=== PATIENT | male | born 1965 | race Caucasian/White ===

== ENCOUNTER 2021-08-02 03:27 | Outpatient (RCR) | payer MEDICAID, SELFPAY ==
[2021-08-02] MEDS: Normal Saline Flush 10 ML SYR IVP (10:15)
[2021-08-02 10:37] LABS: Abs Immature Grans 0.09 10^3/uL (0.0-0.06); Absolute Basophil Count 0.02 10^3/uL (0.0-0.2); Absolute Eosinophil Count 0.08 10^3/uL (0.0-0.7); Absolute Lymphocyte Count 0.71 10^3/uL (1.2-3.4); Absolute Monocyte Count 0.79 10^3/uL (0.1-0.8); Absolute Neutrophil Count 5.26 10^3/uL (1.2-6.7); Basophils % 0.3; Eosinophils % 1.2; HCT 31.8 % (40.0-50.0); HGB 9.4 g/dL (13.5-17.5); Immature Grans % 1.3; Lymphocytes % 10.2; MCH 27.6 pg (27.0-33.0); MCHC 29.6 % (32.0-36.0); MCV 93.3 fL (80-95); MPV 9.4 fL (8.0-11.0); Monocytes % 11.4; Neutrophils % 75.6; Nucleated RBC 0 %; Platelet Count 376 10^3/uL (130-400); RBC 3.41 10^6/uL (4.36-5.78); RDW 23.8 % (11.8-14.1); RDW-SD 81.1 fL; WBC 6.95 10^3/uL (4.4-10.8)
[2021-08-02 11:02] LABS: ALT 17 U/L (16-63); AST 8 U/L (15-37); Albumin 3.2 g/dL (3.4-5.0); Alkaline Phosphatase 92 U/L (46-116); Anion Gap 9.5 mmol/L (3-11); BUN 11 mg/dL (7-18); Bilirubin, Total 0.2 mg/dL (0.2-1.0); CO2 27.5 mmol/L (21.0-32.0); CREATININE 0.7 mg/dL (0.70-1.30); Calcium 8.9 mg/dL (8.5-10.1); Chloride 100 mmol/L (98-107); FREE T4 0.83 ng/dL (0.76-1.46); Glucose 94 mg/dL (74-106); LDH 132 U/L (85-227); Potassium 3.8 mmol/L (3.5-5.1); Sodium 137 mmol/L (136-145); TSH 3.53 uIU/mL (0.36-3.74); Total Protein 7.4 g/dL (6.4-8.2)
[2021-08-02 11:09] LABS: Anisocytosis 2+; Diff Comment RBC Morph Reviewed; Hypochromasia 1+
== END 2021-08-27 23:59 | disposition home or self-care (01) ==
LOC: INF 03:27
PROVIDERS: PCP Family Medicine; Visit Provider Nurse Practitioner
DX: C34.92 Malignant neoplasm of unspecified part of left bronchus or lung (principal); Z79.899 Other long term (current) drug therapy; Z45.2 Encounter for adjustment and management of vascular access device
CPT/HCPCS: 36591; 80053; 83615; 84439; 84443; 85025

== ENCOUNTER 2021-09-10 12:43 | Outpatient (RCR) | payer MEDICAID, SELFPAY ==
[2021-09-10] MEDS: Normal Saline Flush 10 ML SYR IVP (13:04)
[2021-09-10 13:17] LABS: Abs Immature Grans 0.12 10^3/uL (0.0-0.06); Absolute Basophil Count 0.04 10^3/uL (0.0-0.2); Absolute Eosinophil Count 0.01 10^3/uL (0.0-0.7); Absolute Lymphocyte Count 0.37 10^3/uL (1.2-3.4); Absolute Monocyte Count 0.53 10^3/uL (0.1-0.8); Basophils % 0.3; Eosinophils % 0.1; HCT 39.1 % (40.0-50.0); HGB 11.9 g/dL (13.5-17.5); Immature Grans % 0.9; Lymphocytes % 2.8; MCH 29.5 pg (27.0-33.0); MCHC 30.4 % (32.0-36.0); MPV 9.5 fL (8.0-11.0); Neutrophils % 91.9; Nucleated RBC 0 %; Platelet Count 385 10^3/uL (130-400); RBC 4.03 10^6/uL (4.36-5.78); RDW 18.1 % (11.8-14.1); RDW-SD 64.9 fL; WBC 13.34 10^3/uL (4.4-10.8)
[2021-09-10 13:18] LABS: Absolute Neutrophil Count 12.26 10^3/uL (1.2-6.7)
[2021-09-10 13:39] LABS: ALT 20 U/L (16-63); AST 15 U/L (15-37); Albumin 3.6 g/dL (3.4-5.0); Alkaline Phosphatase 89 U/L (46-116); Anion Gap 8.6 mmol/L (3-11); BUN 13 mg/dL (7-18); Bilirubin, Total 0.2 mg/dL (0.2-1.0); CO2 26.4 mmol/L (21.0-32.0); CREATININE 0.8 mg/dL (0.70-1.30); Calcium 9.3 mg/dL (8.5-10.1); Chloride 99 mmol/L (98-107); FREE T4 0.83 ng/dL (0.76-1.46); Glucose 112 mg/dL (74-106); LDH 156 U/L (85-227); Potassium 4.2 mmol/L (3.5-5.1); Sodium 134 mmol/L (136-145); TSH 0.49 uIU/mL (0.36-3.74); Total Protein 7.9 g/dL (6.4-8.2)
== END 2021-09-24 23:59 | disposition home or self-care (01) ==
LOC: INF 12:43
PROVIDERS: PCP Family Medicine; Visit Provider Nurse Practitioner
DX: C34.92 Malignant neoplasm of unspecified part of left bronchus or lung (principal); Z79.899 Other long term (current) drug therapy; Z45.2 Encounter for adjustment and management of vascular access device
CPT/HCPCS: 36591; 80053; 83615; 84439; 84443; 85025

== ENCOUNTER 2021-10-01 03:43 | Outpatient (RCR) | payer MEDICAID, SELFPAY ==
[2021-10-01] MEDS: Normal Saline Flush 10 ML SYR IVP (12:03)
[2021-10-01 12:08] LABS: Abs Immature Grans 0.12 10^3/uL (0.0-0.06); Absolute Basophil Count 0.03 10^3/uL (0.0-0.2); Absolute Lymphocyte Count 0.32 10^3/uL (1.2-3.4); Absolute Monocyte Count 0.48 10^3/uL (0.1-0.8); Absolute Neutrophil Count 13.67 10^3/uL (1.2-6.7); Basophils % 0.2; Eosinophils % 0.1; HCT 39.5 % (40.0-50.0); HGB 12.3 g/dL (13.5-17.5); Immature Grans % 0.8; Lymphocytes % 2.2; MCH 29.9 pg (27.0-33.0); MCHC 31.1 % (32.0-36.0); MCV 95.9 fL (80-95); MPV 9.4 fL (8.0-11.0); Monocytes % 3.3; Neutrophils % 93.4; Nucleated RBC 0 %; Platelet Count 279 10^3/uL (130-400); RBC 4.12 10^6/uL (4.36-5.78); RDW-SD 60.4 fL; WBC 14.64 10^3/uL (4.4-10.8)
[2021-10-01 12:10] LABS: Absolute Eosinophil Count 0.01 10^3/uL (0.0-0.7)
[2021-10-01 12:33] LABS: ALT 24 U/L (16-63); AST 10 U/L (15-37); Albumin 3.6 g/dL (3.4-5.0); Alkaline Phosphatase 82 U/L (46-116); Anion Gap 12.1 mmol/L (3-11); BUN 14 mg/dL (7-18); Bilirubin, Total 0.2 mg/dL (0.2-1.0); CO2 24.9 mmol/L (21.0-32.0); CREATININE 0.8 mg/dL (0.70-1.30); Chloride 102 mmol/L (98-107); FREE T4 0.73 ng/dL (0.76-1.46); Glucose 110 mg/dL (74-106); LDH 130 U/L (85-227); Potassium 3.9 mmol/L (3.5-5.1); Sodium 139 mmol/L (136-145); TSH 0.82 uIU/mL (0.36-3.74); Total Protein 7.6 g/dL (6.4-8.2)
== END 2021-10-25 23:59 | disposition home or self-care (01) ==
LOC: INF 03:43
PROVIDERS: PCP Family Medicine; Visit Provider Nurse Practitioner
DX: C34.92 Malignant neoplasm of unspecified part of left bronchus or lung (principal); Z79.899 Other long term (current) drug therapy; Z45.2 Encounter for adjustment and management of vascular access device
CPT/HCPCS: 36591; 80053; 83615; 84439; 84443; 85025

== ENCOUNTER 2021-11-13 01:26 | Outpatient (RCR) | payer MEDICAID, SELFPAY ==
[2021-11-13] MEDS: Normal Saline Flush 10 ML SYR IVP (11:03)
[2021-11-13 11:16] LABS: Abs Immature Grans 0.06 10^3/uL (0.0-0.06); Absolute Basophil Count 0.03 10^3/uL (0.0-0.2); Absolute Eosinophil Count 0.05 10^3/uL (0.0-0.7); Absolute Lymphocyte Count 0.33 10^3/uL (1.2-3.4); Absolute Monocyte Count 0.47 10^3/uL (0.1-0.8); Absolute Neutrophil Count 10.34 10^3/uL (1.2-6.7); Basophils % 0.3; Eosinophils % 0.4; HGB 11.4 g/dL (13.5-17.5); Immature Grans % 0.5; Lymphocytes % 2.9; MCH 29.8 pg (27.0-33.0); MCHC 31.7 % (32.0-36.0); MCV 94 fL (80-95); MPV 9.5 fL (8.0-11.0); Monocytes % 4.2; Neutrophils % 91.7; Platelet Count 399 10^3/uL (130-400); RBC 3.83 10^6/uL (4.36-5.78); RDW 15.6 % (11.8-14.1); RDW-SD 53.3 fL; WBC 11.28 10^3/uL (4.4-10.8)
[2021-11-13 11:40] LABS: ALT 20 U/L (16-63); AST 21 U/L (15-37); Albumin 3.3 g/dL (3.4-5.0); Alkaline Phosphatase 79 U/L (46-116); Anion Gap 6.3 mmol/L (3-11); BUN 10 mg/dL (7-18); Bilirubin, Total 0.4 mg/dL (0.2-1.0); CO2 27.7 mmol/L (21.0-32.0); CREATININE 0.7 mg/dL (0.70-1.30); Calcium 9.1 mg/dL (8.5-10.1); Chloride 100 mmol/L (98-107); Glucose 119 mg/dL (74-106); LDH 194 U/L (85-227); Potassium 4.3 mmol/L (3.5-5.1); Sodium 134 mmol/L (136-145); TSH 0.82 uIU/mL (0.36-3.74); Total Protein 7.4 g/dL (6.4-8.2)
== END 2021-11-24 23:59 | disposition home or self-care (01) ==
LOC: INF 01:26
PROVIDERS: PCP Family Medicine; Visit Provider Nurse Practitioner
DX: Z45.2 Encounter for adjustment and management of vascular access device (principal); C34.92 Malignant neoplasm of unspecified part of left bronchus or lung; Z79.899 Other long term (current) drug therapy
CPT/HCPCS: 36591; 80053; 83615; 84439; 84443; 85025

== ENCOUNTER 2021-12-04 00:58 | Outpatient (RCR) | payer MEDICAID, SELFPAY ==
[2021-12-04 11:05] LABS: Abs Immature Grans 0.08 10^3/uL (0.0-0.06); Absolute Basophil Count 0.04 10^3/uL (0.0-0.2); Absolute Eosinophil Count 0.18 10^3/uL (0.0-0.7); Absolute Lymphocyte Count 0.45 10^3/uL (1.2-3.4); Absolute Monocyte Count 0.73 10^3/uL (0.1-0.8); Basophils % 0.3; Eosinophils % 1.4; HCT 36.9 % (40.0-50.0); HGB 11.6 g/dL (13.5-17.5); Immature Grans % 0.6; Lymphocytes % 3.5; MCH 28.6 pg (27.0-33.0); MCHC 31.4 % (32.0-36.0); MCV 91 fL (80-95); MPV 9.8 fL (8.0-11.0); Monocytes % 5.7; Neutrophils % 88.5; Platelet Count 384 10^3/uL (130-400); RBC 4.05 10^6/uL (4.36-5.78); RDW-SD 54.1 fL; WBC 12.81 10^3/uL (4.4-10.8)
[2021-12-04 11:06] LABS: Absolute Neutrophil Count 11.34 10^3/uL (1.2-6.7)
[2021-12-04] MEDS: Normal Saline Flush 10 ML SYR IVP (11:08)
[2021-12-04 11:26] LABS: ALT 20 U/L (16-63); AST 8 U/L (15-37); Albumin 3.5 g/dL (3.4-5.0); Alkaline Phosphatase 82 U/L (46-116); Anion Gap 7.2 mmol/L (3-11); BUN 9 mg/dL (7-18); Bilirubin, Total 0.3 mg/dL (0.2-1.0); CO2 27.8 mmol/L (21.0-32.0); CREATININE 0.9 mg/dL (0.70-1.30); Calcium 9.2 mg/dL (8.5-10.1); Chloride 100 mmol/L (98-107); FREE T4 0.93 ng/dL (0.76-1.46); Glucose 103 mg/dL (74-106); LDH 144 U/L (85-227); Potassium 3.8 mmol/L (3.5-5.1); Sodium 135 mmol/L (136-145); TSH 1.27 uIU/mL (0.36-3.74); Total Protein 7.7 g/dL (6.4-8.2)
== END 2021-12-25 23:59 | disposition home or self-care (01) ==
LOC: INF 00:58
PROVIDERS: PCP Family Medicine; Visit Provider Nurse Practitioner
DX: Z45.2 Encounter for adjustment and management of vascular access device (principal); C34.92 Malignant neoplasm of unspecified part of left bronchus or lung; Z79.899 Other long term (current) drug therapy
CPT/HCPCS: 36591; 80053; 83615; 84439; 84443; 85025

== ENCOUNTER 2022-01-15 15:20 | Inpatient (IN) | payer MEDICAID, SELFPAY ==
[2022-01-15] VITALS (104 sets, daily range): BP systolic 83–134; BP diastolic 47–74; PULSE 63–142; RESP 8–40; TEMP 36.8–37.3; O2SAT 94–100
--- NOTE | 2022-01-15 15:15 | RT.EKG_ITS ---
APPROVED REPORT Exam: Resting ECG Reason for Exam: sob Patient Location: E HR:106 bpm ECG Measurements Heart Rate 106 AXIS FL 144 P -15 QRSd 89 QRS 74 QT 351 T 8 QTc 467 Conclusion Sinus tachycardia...rate> 99. Sinus. Normal axis. No STEMI. I have reviewed and interpreted ECG and agree with software generated interpretation.
--- NOTE | 2022-01-15 15:22 | ED.GENADUL_ITS ---
Discharge Plan Disposition Patient Disposition: [facility] INPATIENT Condition: Serious Discharge Details Clinical Impression: DKA (diabetic ketoacidosis), History of chemotherapy, History of lung cancer, LAUREN (acute kidney injury), Pancreatitis Admit Date/Time: 01/15/22 18:25 Admit Provider: Luis F Mckeon Attending Provider: Luis F Mckeon Primary Care Provider: Gene Aquino ED Provider: Brooke Sanford Discharge Data Discharge Date/Time-TO BE ENTERED AT DEPARTURE: 01/15/22 19:37 Medical Decision Making 1535 -- 56-year-old male with extensive smoking history and stage IV lung adenocarcinoma with brain metastases currently undergoing chemotherapy and followed at [facility] presents with shortness of breath and weakness since yesterday. Heart rate 110s on arrival. Oxygen saturation 97% on room air. He is neck and appears labored and speaking in 2-3 word sentences. His breath sounds are clear throughout. Considered pneumothorax, pleural effusion, pneumonia, COVID. PE less likely as he is already on Eliquis but a consideration. Discussed with radiology and agrees to proceed with CT chest w/ IV contrast. Of note CT scanner is currently down for maintenance in the next 3 hours. Patient is already on Eliquis and will likely plan for admission. Stat portable chest x-ray obtained and note left lower lobe densities and pleural thickening which could represent infiltrate versus prior surgical changes with no pneumothorax. Review of [facility] records note that patient has a known left lower lobe adenocarcinoma with brain metastasis. Pt endorses that he is a full code. 1620 --patient endorsed feeling nauseous and is attempting to make himself vomit. Dose of Zofran given. He appears restless. He has some mild noted coarse breath sounds, will give a dose of IV Solu-Medrol, duo nebs and start w ith dose of morphine. 1650 --patient appears much more comfortable. Oxygen saturation 96 to 97% on 2 L, will continue to try to treat for comfort and tachypnea. 1730 --labs resulted and appears consistent with DKA. Glucose 810. Bicarb 5.9. Anion gap 36. pH 7.0. Case discussed with [facility] oncology --patient could have potential autoimmune adverse reaction chemotherapeutic agent Pembrolizumab causing pancreatitis and her DKA. Recommend checking a lipase and amylase. Recommend standard treatment for DKA. No indication for additional steroids at this time. Case discussed with hospitalist who accepts patient for admission. Medical Records Medical records reviewed: Yes I reviewed the patient's medical records. Imaging Data Radiologic Study: Radiologist's impression: XR PORTABLE CHEST AP CLINICAL HISTORY:? shortness of breath, h/o lung cancer TECHNIQUE:? 2D digital imaging was performed. COMPARISON:? No exams were available for comparison FINDINGS: ?The left lung base is poorly penetrated.? Leads overlie the chest.? There is a port over the right chest with the tip in the superior vena cava.? The cardiac silhouette is partially obscured.? There is pleural thickening versus effusion extending along the left lateral chest wall.? There are increased densities in the left half of the lung.? The findings could be postsurgical versus atelectasis or infiltrate. IMPRESSION: Limited exam.? Left lower lobe densities and pleural thickening? could represent infiltrate versus postsurgical changes. Lab Data Lab results reviewed: Yes I reviewed the patient's lab results. Labs: Laboratory Tests Range/Units 01/15/22 01/15/22 01/15/22 15:30 16:00 16:00 WBC (4.4-10.8) 10^3/uL 23.13 H RBC (4.36-5.78) 10^6/uL 5.03 Hgb (13.5-17.5) g/dL 13.4 L Hct (40.0-50.0) % 46.1 MCV (80-95) fL 92 MCH (27.0-33.0) pg 26.6 L MCHC (32.0-36.0) % 29.1 L RDW (11.8-14.1) % 15.9 H Plt Count (130-400) 10^3/uL 627 H MPV (8.0-11.0) fL 10.9 Immature Gran % 2.3 Neutrophils % 88.2 Lymphocytes % 1.7 Monocytes % 7.3 Eosinophils % 0.1 Basophils % 0.4 Nucleated RBC % (0.0-0.3) % 0.0 Absolute Neutrophils (1.2-6.7) 10^3/uL 20.40 H Absolute Lymphocytes (1.2-3.4) 10^3/uL 0.39 L Absolute Monocytes (0.1-0.8) 10^3/uL 1.69 H Absolute Eosinophils (0.0-0.7) 10^3/uL 0.02 Absolute Basophils (0.0-0.2) 10^3/uL 0.09 RBC Morphology Normal ABG Sample Site ABG pH (7.35-7.45) ABG pCO2 (35-45) mmHg ABG pO2 (80-105) mmHg ABG HCO3 (22-26) mmol/L ABG Total CO2 (23-27) mmol/L ABG O2 Saturation (95-98) % ABG Base Excess (-2-3) mmol/L Sodium (136-145) mmol/L 128 L Potassium (3.5-5.1) mmol/L 5.3 H Chloride (98-107) mmol/L 86 L Carbon Dioxide (21.0-32.0) mmol/L 5.9 L Anion Gap (3-11) mmol/L 36.1 H BUN (7-18) mg/dL 42 H Creatinine (0.70-1.30) mg/dL 2.8 H Estimated GFR/1.73 m2 (mL/min/1.73m2) 23.39 Glucose (74-106) mg/dL 810 H* Calcium (8.5-10.1) mg/dL 9.9 Magnesium (1.8-2.4) mg/dL 2.6 H Total Bilirubin (0.2-1.0) mg/dL 0.4 AST (15-37) U/L 16 ALT (16-63) U/L 16 Alkaline Phosphatase (46-116) U/L 124 H Troponin I (<or=60) ng/L < 50 Total Protein (6.4-8.2) g/dL 8.9 H Albumin (3.4-5.0) g/dL 3.9 Amylase (25-115) U/L Lipase (73-393) U/L COVID-19 Source Nasal/Nares Range/Units 01/15/22 01/15/22 16:00 16:57 WBC (4.4-10.8) 10^3/uL RBC (4.36-5.78) 10^6/uL Hgb (13.5-17.5) g/dL Hct (40.0-50.0) % MCV (80-95) fL MCH (27.0-33.0) pg MCHC (32.0-36.0) % RDW (11.8-14.1) % Plt Count (130-400) 10^3/uL MPV (8.0-11.0) fL Immature Gran % Neutrophils % Lymphocytes % Monocytes % Eosinophils % Basophils % Nucleated RBC % (0.0-0.3) % Absolute Neutrophils (1.2-6.7) 10^3/uL Absolute Lymphocytes (1.2-3.4) 10^3/uL Absolute Monocytes (0.1-0.8) 10^3/uL Absolute Eosinophils (0.0-0.7) 10^3/uL Absolute Basophils (0.0-0.2) 10^3/uL RBC Morphology ABG Sample Site Left Radial ABG pH (7.35-7.45) 7.03 L* ABG pCO2 (35-45) mmHg 15 L* ABG pO2 (80-105) mmHg 94 ABG HCO3 (22-26) mmol/L 4 L ABG Total CO2 (23-27) mmol/L 4 L ABG O2 Saturation (95-98) % 95 ABG Base Excess (-2-3) mmol/L < -15 L Sodium (136-145) mmol/L Potassium (3.5-5.1) mmol/L Chloride (98-107) mmol/L Carbon Dioxide (21.0-32.0) mmol/L Anion Gap (3-11) mmol/L BUN (7-18) mg/dL Creatinine (0.70-1.30) mg/dL Estimated GFR/1.73 m2 (mL/min/1.73m2) Glucose (74-106) mg/dL Calcium (8.5-10.1) mg/dL Magnesium (1.8-2.4) mg/dL Total Bilirubin (0.2-1.0) mg/dL AST (15-37) U/L ALT (16-63) U/L Alkaline Phosphatase (46-116) U/L Troponin I (<or=60) ng/L Total Protein (6.4-8.2) g/dL Albumin (3.4-5.0) g/dL Amylase (25-115) U/L 171 H Lipase (73-393) U/L 1006 H COVID-19 Source ECG Data Attestation: I personally reviewed and interpreted this ECG (s) as follows: Interpretation: Rate of 106, sinus, normal axis, no STEMI. HPI General Date/Time Provider Initiated Documentation: 01/15/22 15:21 . Limitations to Documentation: no limitations . Information obtained by: patient . HPI Narrative: Patient is a 56-year-old male with extensive smoking hisitory and stage IV lung adenocarcinoma with brain metastases diagnosed 1 year ago currently on chemotherapy with [facility] presents for shortness of breath and weakness since yesterday. Patient states he is not on home oxygen. Patient states he was on his way to an appointment at [facility] but he stopped care due to his symptoms. He states his shortness of breath is worse with exertion. He admits to right anterior inferior chest pain. He admits to a chronic cough with occasional green sputum but denies any hemoptysis, fever, vomiting or abdominal pain. Patient states he last received chemo 2 weeks ago. He states he is unvaccinated for COVID and was exposed to COVID 1 week ago. [facility] records note that he was diagnosed with a near occlusive thrombus within the right internal jugular vein immediately superior to his chest port catheter on CT from 07/09/2021 and he is taking chronic Eliquis and prednisone. Related Data Home Medications Medication Instructions Recorded Confirmed acetaminophen 325 mg tablet 650 mg PO Q4H 01/15/22 01/15/22 albuterol sulfate 90 mcg/actuation 2 inh inhalation Q4H 01/15/22 01/15/22 aerosol inhaler apixaban 5 mg tablet 5 mg PO BID 01/15/22 01/15/22 fluticasone 250 mcg-salmeterol 50 1 ea inhalation Q12H 01/15/22 01/15/22 mcg/dose blistr powdr for inhalation prednisone 10 mg tablet 10 mg PO DAILY 01/15/22 01/15/22 Allergies Allergy/AdvReac Type Severity Reaction Status Date / Time ramucirumab Allergy Severe Hives Unverified 01/15/22 16:25 General Stated Complaint: SOB [place]: 2 Review of Systems All systems reviewed & are unremarkable except as noted in HPI and below Constitutional Constitutional: Denies chills, Denies excessive sweating, Denies fatigue, Denies fever(s), Denies weakness and Denies weight loss Eyes Eyes: Reports system reviewed and no additional complaints, except as documented and Denies blurry vision ENT Ears, Nose, Mouth, and Throat: Denies vertigo, Denies dizziness, Denies otalgia, Denies nasal congestion, Denies sore throat and Denies throat swelling Cardiovascular Cardiovascular: Denies chest pain, Denies syncope, Denies rapid heart rate and Reports dyspnea Respiratory Respiratory: Denies chest congestion, Denies cough, Denies pain on inspiration and Reports dyspnea Gastrointestinal Gastrointestinal: Denies abdominal pain, Denies diarrhea and Denies vomiting Genitourinary Genitourinary: Denies hematuria, Denies dysuria and Denies flank pain Musculoskeletal Musculoskeletal: Denies back pain and Denies joint swelling Integumentary/Breasts Skin/Breast: Denies lesions and Denies rash Neurologic Neurologic: Denies behavioral changes, Denies confusion, Denies vertigo, Denies dizziness, Denies syncope, Denies localized weakness and Denies weakness Psychiatric Psychiatric: Denies behavioral changes, Denies confusion and Denies depression Endocrine Endocrine: Denies excessive sweating and Denies fatigue Hematologic/Lymphatic Hematologic/Lymphatic: Denies easy bruising and Denies lymphadenopathy Allergic/Immunologic Allergic/Immunologic: Denies throat swelling PFSH All Active Problems (Updated 01/16/22 @ 09:13 by Luis F Mckeon MD) Acute purulent bronchitis (Acute) DKA (diabetic ketoacidosis) (Acute) History of chemotherapy (Acute) History of lung cancer (Acute) LAUREN (acute kidney injury) (Acute) Pancreatitis (Chronic) Medical History Brain metastases Deep vein thrombosis (DVT) of right upper extremity Near occlusive thrombus R internal jugular vein on 07/09/21 Stage IV adenocarcinoma of lung Surgical History History of hernia repair Family History (Updated 01/15/22 @ 22:43 by Luis F Mckeon MD) Sister Cancer childhood head and neck cancer; ?osteosarcoma; underwent jaw resection Father Diabetes Social History (Updated 01/15/22 @ 22:44 by Luis F Mckeon MD) Smoking/Tobacco Use Status: Former Tobacco Use Smoking risk assessment performed?: Yes Alcohol Intake: current Alcohol Intake frequency: a few times a month Substance use type: does not use Do you feel safe at home: Yes Do you feel safe in your relationship?: Yes Exam Const General: cooperative Orientation: alert, awake and oriented x3 HENMT Head: normal to inspection Ears: hearing grossly normal bilaterally, external ears normal and TM's normal bilaterally General nose exam: external nose normal Face and sinus: normal facial exam Mouth: oral mucosae normal Teeth and gingiva: dentition normal Throat: posterior oropharynx normal Eyes General: appearance normal, both eyes and all related structures Eyelids: eyelids normal Pupils: PERRL EOM: EOM intact bilaterally Neck Neck: normal visual inspection Lymphatic: no lymphadenopathy noted Chest Chest: normal inspection of the chest Resp Effort & Inspection: normal respiratory effort and able to speak in complete sentences Auscultation: no rales, no rhonchi and no wheezes Cardio Rate: tachycardic Rhythm: regular rhythm GI Inspection: normal to inspection Palpation: soft, not firm, no guarding, no hepatosplenomegaly, no masses and nontender Auscultation: normal bowel sounds Back/Spine/Pelvis Back: no CVA tenderness Skin General skin exam: no rashes or lesions noted Neuro General: patient alert and patient awake Cognition: normal cognition Speech: speech normal Gait: normal gait Motor: muscle tone normal throughout Sensory Exam: no sensory deficits noted Extrem General: normal to inspection, full ROM and capillary refill normal Psych Appearance: grossly normal Mental Status: mental status grossly normal Speech and Movement: speech and movement normal Affect: normal affect Thought Process: normal Critical Care Time Critical Care Time Critical Care Time: Yes Total Critical Care Time: 60 Attestation: I spent 60 minutes of critical care time with this patient. This does not include time spent on separately reported billable procedures.
--- NOTE | 2022-01-15 15:30 | DI.RAD_ITS ---
Exam(s) XR PORTABLE CHEST AP EXAM: XR PORTABLE CHEST AP CLINICAL HISTORY: shortness of breath, h/o lung cancer TECHNIQUE: 2D digital imaging was performed. COMPARISON: No exams were available for comparison FINDINGS: The left lung base is poorly penetrated. Leads overlie the chest. There is a port over the right c hest with the tip in the superior vena cava. The cardiac silhouette is partially obscured. There is pleural thickening versus effusion extending along the left lateral chest wall. There are increased densities in the left half of the lung. The findings could be postsurgical versus atelectasis or in filtrate. IMPRESSION: Limited exam. Left lower lobe densities and pleural thickening could represent infiltrate versus po stsurgical changes. DATA REPOSITORY: RADIATION DOSE DELIVERED:
[2022-01-15 15:37] LABS: Source Nasal/Nares
[2022-01-15] MEDS: Normal Saline 1,000 ML 1000 ML IV ×2 (16:05→17:05)
[2022-01-15] MEDS: LORazepam 2 MG/ML VIAL 0.5 MG IVP ×2 (16:05→16:35)
[2022-01-15] MEDS: Ondansetron 4 MG/2 ML VIAL (16:17)
[2022-01-15 16:22] LABS: Abs Immature Grans 0.53 10^3/uL (0.0-0.06); Absolute Lymphocyte Count 0.39 10^3/uL (1.2-3.4); Absolute Monocyte Count 1.69 10^3/uL (0.1-0.8); Basophils % 0.4; Eosinophils % 0.1; HCT 46.1 % (40.0-50.0); HGB 13.4 g/dL (13.5-17.5); Immature Grans % 2.3; Lymphocytes % 1.7; MCH 26.6 pg (27.0-33.0); MCHC 29.1 % (32.0-36.0); MCV 92 fL (80-95); MPV 10.9 fL (8.0-11.0); Monocytes % 7.3; Neutrophils % 88.2; Platelet Count 627 10^3/uL (130-400); RBC 5.03 10^6/uL (4.36-5.78); RDW 15.9 % (11.8-14.1); RDW-SD 53.5 fL; WBC 23.13 10^3/uL (4.4-10.8)
[2022-01-15 16:27] LABS: Absolute Basophil Count 0.09 10^3/uL (0.0-0.2); Absolute Eosinophil Count 0.02 10^3/uL (0.0-0.7)
[2022-01-15] MEDS: Albuterol/Ipratropium 3 ML UPD VIAL UPD (16:29)
[2022-01-15] MEDS: methylPREDNISolone SUCC 125 MG VIAL IVP (16:35)
[2022-01-15] MEDS: MORPHine 4 MG/ML SYR IVP (16:35)
[2022-01-15 16:45] LABS: ALT 16 U/L (16-63); AST 16 U/L (15-37); Albumin 3.9 g/dL (3.4-5.0); Alkaline Phosphatase 124 U/L (46-116); Anion Gap 36.1 mmol/L (3-11); BUN 42 mg/dL (7-18); Bilirubin, Total 0.4 mg/dL (0.2-1.0); CO2 5.9 mmol/L (21.0-32.0); CREATININE 2.8 mg/dL (0.70-1.30); Calcium 9.9 mg/dL (8.5-10.1); Chloride 86 mmol/L (98-107); Estimated GFR 23.39 (mL/min/1.73m2); Magnesium 2.6 mg/dL (1.8-2.4); Potassium 5.3 mmol/L (3.5-5.1); Sodium 128 mmol/L (136-145); Total Protein 8.9 g/dL (6.4-8.2); Troponin I < 50 ng/L (<or=60)
[2022-01-15 16:55] LABS: Diff Comment Agrees w/ Instrument; RBC Morphology Normal
[2022-01-15 17:03] LABS: HCO3 4 mmol/L (22-26); pO2 94 mmHg (80-105); sO2 95 % (95-98); tCO2 4 mmol/L (23-27)
[2022-01-15 17:08] LABS: pH 7.03 (7.35-7.45)
[2022-01-15 17:11] LABS: Site Left Radial
[2022-01-15 17:28] LABS: Glucose 810 mg/dL (74-106)
[2022-01-15] MEDS: cefTRIAXone 2 GM/50 ML BAG IVPB (17:31)
[2022-01-15] MEDS: DOXYCYCLINE 100 MG in Normal Saline 100 ML IVPB (17:40)
[2022-01-15 17:44] LABS: Amylase 171 U/L (25-115); Lipase 1006 U/L (73-393)
[2022-01-15] MEDS: Insulin REGULAR-Human 100 UNITS/ML UNIT 8 UNITS SC (17:51)
[2022-01-15 17:52] LABS: COVID-19 PCR Negative (Negative)
[2022-01-15] MEDS: INSULIN REGULAR IN 0.9 % NACL 100 UNIT/100 ML BAG 9.24 UNIT IV (18:06)
--- NOTE | 2022-01-15 18:08 | HPE_ITS ---
Date of service: 01/15/22 Time of Service: 18:08 Assessment and Plan Assessment and plan (1) DKA (diabetic ketoacidosis): Status: Acute Assessment and plan: hydrate and supplement w/ potassium; insulin drip per Roland protocol; hourly glucose and BMP every 3 hr; I ordered one time dose of sodium bicarbonate d/t the severity of his metabolic acidosis. monitor serial electrolytes every 3 hrs; glucose may go higher intially d/t solumedrol. Dr. Sanford spoke w/ [facility] about dosing of steroids. they felt that he could remain on his usual dose of prednisone 10 mg daily and did not need stress dose coverage unless he exhibits symptoms of adrenal insufficiency. I will check CT of the abdomen and pelvis in the morning d/t his pancreatitis to rule out gallstones pancreatitis, r/o pancreatic necrosis/abscess or pseudocyst. Critical care time spent interviewing and examining the patient, reviewing studies, discussing case with patient's nurse and consulting physicians was 60 minutes (2) LAUREN (acute kidney injury): Status: Acute Assessment and plan: hydration and correction of electrolyte abnormalities, close monitoring of urine outputs and serial BMP (3) Pancreatitis: Status: Chronic Assessment and plan: check triglycerides, check CT of abdomen and pelvis in the a.m. Patient reportedly was a former heavy consumer of alcohol but now nusrat has a [employer] once a month. (4) History of lung cancer: Status: Acute Assessment and plan: currently under active treatment through [facility] oncology, Dr. Cornell. Patient is on pembrolizumab (Keytruda). 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 He underwent radiation therapy and chemotherapy and is on maintenance chemotherapy w/ Keytruda. His last infusion was 3 weeks ago this . He is due for infusion this . His chest CT scan was 3 wks ago. (5) Deep vein thrombosis (DVT) of right upper extremity: Assessment and plan: dx 07/09/21 in the right IJV near the subclavian metaport catheter. currently on apixaban History of Present Illness History of Present Illness Chief Complaint: vomiting, weak, unable to keep anything down Narrative: 56 yr old male w/ lung cancer on chemotherapy treatment w/ Keytruda (pembrolizumab) who developed nausea, low back pains, headaches, muscle aches, fatiuge, diarrhea and increased sense of thirst. Symptoms developed over the past week and became progressively worse until 3 A.M. today he began vomiting and has been unable to keep anything down orally. Upon presentation initially ED personnel thought that he had a primary pulmonary problem, i.e. pneumonia, pneumothorax, P.E. because he was tachypneic and tachycardic on arrival however after initially treating him w/ nebulizers, oxyen, morphine and solumedrol after obtaining labs he was found to be in DKA w/ glucose of 800 and anion gap of 36, bicarbonate of 5.9 and pH of 7.0 w/ LAUREN (BUN 42 and creatinine of 2.8). Patient was given bolus of normal saline and put on insulin drip. Amylase and lipase were elevated at 171 and 1006 respectively. LFT's were normal. Troponin I was normal. CXR demonstrated LLL densities and pleural thickening. 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 He does affirm that he has chronic cough productive of colored sputum but no fevers or rigors. Dr. Sanford spoke w/ [facility] oncology who indicated that the patient may be having an immune reaction to the chemotherapy Pembrolizumab and developing pancreatitis and causing development of type I DM and putting him into DKA. They advised treating his DKA and pancreatitis like any other case of DKA and pancreatitis. Patient is admitted to ICU for insulin drip, iv fluids, potassium replacement and monitoring of labs. Review of Systems All systems reviewed & are unremarkable except as noted in HPI and below Constitutional Constitutional: Reports body ache(s), Reports fatigue, Reports headache(s), Reports lethargy, Reports malaise, Reports poor appetite and Reports weakness Eyes Eyes: Reports system reviewed and no additional complaints, except as documented ENT Ears, Nose, Mouth, and Throat: Reports system reviewed and no additional complaints, except as documented and Reports headache(s) Cardiovascular Cardiovascular: Reports system reviewed and no additional complaints, except as documented Respiratory Respiratory: Reports as per HPI Gastrointestinal Gastrointestinal: Reports as per HPI Genitourinary Genitourinary: Reports system reviewed and no additional complaints, except as documented Musculoskeletal Musculoskeletal: Reports as per HPI Integumentary/Breasts Skin/Breast: Reports system reviewed and no additional complaints, except as documented Neurologic Neurologic: Reports headache(s) and Reports weakness Endocrine Endocrine: Reports as per HPI, Reports fatigue, Reports polydipsia and Reports polyuria PFSH All Active Problems DKA (diabetic ketoacidosis) (Acute) History of chemotherapy (Acute) History of lung cancer (Acute) LAUREN (acute kidney injury) (Acute) Pancreatitis (Chronic) Medical History Brain metastases Deep vein thrombosis (DVT) of right upper extremity Near occlusive thrombus R internal jugular vein on 07/09/21 Stage IV adenocarcinoma of lung Surgical History History of hernia repair Family History (Updated 01/15/22 @ 22:43 by Luis F Mckeon MD) Sister Cancer childhood head and neck cancer; ?osteosarcoma; underwent jaw resection Father Diabetes Social History (Updated 01/15/22 @ 22:44 by Luis F Mckeon MD) Smoking/Tobacco Use Status: Former Tobacco Use Smoking risk assessment performed?: Yes Alcohol Intake: current Alcohol Intake frequency: a few times a month Substance use type: does not use Do you feel safe at home: Yes Do you feel safe in your relationship?: Yes Meds Allergies and Home Medications Allergies Allergy/AdvReac Type Severity Reaction Status Date / Time ramucirumab Allergy Severe Hives Unverified 01/15/22 16:25 Home Medications Medication Instructions Recorded Confirmed Type acetaminophen 325 mg tablet 650 mg PO Q4H 01/15/22 01/15/22 History albuterol sulfate 90 mcg/actuation 2 inh inhalation Q4H 01/15/22 01/15/22 History aerosol inhaler apixaban 5 mg tablet 5 mg PO BID 01/15/22 01/15/22 History fluticasone 250 mcg-salmeterol 50 1 ea inhalation Q12H 01/15/22 01/15/22 History mcg/dose blistr powdr for inhalation prednisone 10 mg tablet 10 mg PO DAILY 01/15/22 01/15/22 History Exam Narrative Exam Narrative: Large white male who is able to talk unlabored, he is alert and oriented HEENT: remarkable for smell of ketones on his breath, dry mucous membraines, full EOMI; no icterus Neck: no JVD, normal carotid pulses, tachycardia; no adenopathy chest: right infraclavicular area w/ medi-port; no redness nor induration Lungs: clear on the right; markedly decreased breath sounds on the left base; no rhonchi or wheezing Heart: tachycardia but regular; no murmur or rub or gallop Abdomen: slightly distended, tender in the epigastrium and LUQ w/out rebound tenderness; active bowel sounds, no palpable masses but unable to allow me to deeply palpate his abdomen Extremities; no edema or cyanosis; skin warm and dry; intact pulses Results Imaging Chest x-ray: image reviewed EKG: image reviewed Labs Result diagrams: 01/15/22 16:00 01/15/22 19:17 Labs: Laboratory Results - last 24 hr 01/15/22 01/15/22 01/15/22 15:30 16:00 16:00 WBC 23.13 H RBC 5.03 Hgb 13.4 L Hct 46.1 MCV 92 MCH 26.6 L MCHC 29.1 L RDW 15.9 H Plt Count 627 H MPV 10.9 Immature Gran % 2.3 Neutrophils % 88.2 Lymphocytes % 1.7 Monocytes % 7.3 Eosinophils % 0.1 Basophils % 0.4 Nucleated RBC % 0.0 Absolute Neutrophils 20.40 H Absolute Lymphocytes 0.39 L Absolute Monocytes 1.69 H Absolute Eosinophils 0.02 Absolute Basophils 0.09 RBC Morphology Normal ABG Sample Site ABG pH ABG pCO2 ABG pO2 ABG HCO3 ABG Total CO2 ABG O2 Saturation ABG Base Excess Sodium 128 L Potassium 5.3 H Chloride 86 L Carbon Dioxide 5.9 L Anion Gap 36.1 H BUN 42 H Creatinine 2.8 H Estimated GFR/1.73 m2 23.39 Glucose 810 H* Calcium 9.9 Magnesium 2.6 H Total Bilirubin 0.4 AST 16 ALT 16 Alkaline Phosphatase 124 H Troponin I < 50 Total Protein 8.9 H Albumin 3.9 Amylase Lipase COVID-19 Source Nasal/Nares SARS-CoV-2 (PCR) Negative 01/15/22 01/15/22 16:00 16:57 WBC RBC Hgb Hct MCV MCH MCHC RDW Plt Count MPV Immature Gran % Neutrophils % Lymphocytes % Monocytes % Eosinophils % Basophils % Nucleated RBC % Absolute Neutrophils Absolute Lymphocytes Absolute Monocytes Absolute Eosinophils Absolute Basophils RBC Morphology ABG Sample Site Left Radial ABG pH 7.03 L* ABG pCO2 15 L* ABG pO2 94 ABG HCO3 4 L ABG Total CO2 4 L ABG O2 Saturation 95 ABG Base Excess < -15 L Sodium Potassium Chloride Carbon Dioxide Anion Gap BUN Creatinine Estimated GFR/1.73 m2 Glucose Calcium Magnesium Total Bilirubin AST ALT Alkaline Phosphatase Troponin I Total Protein Albumin Amylase 171 H Lipase 1006 H COVID-19 Source SARS-CoV-2 (PCR) Last Vital Signs Pulse 96 H 01/15/22 17:51 Resp 27 H 01/15/22 17:51 BP 115/63 01/15/22 17:51 Pulse Ox 98 01/15/22 17:51 PAWSS Have you Been Recently Intoxicated or Drunk Within the Last 30 days?: Yes Have you Ever Experienced Previous Episodes of Alcohol Withdrawal?: Yes Have you ever Experienced Withdrawal Seizures?: Yes Have you ever Experienced Delirium Tremens(DT)s?: Yes Have you ever undergone Alcohol Rehabilitation Treatment (i.e, inpt ot outpatient treatment programs)?: Yes Have you ever Experienced Blackouts?: Yes Have you ever Combined Alcohol with other Downers within the last 90 days?: No Have you ever Combined Alcohol with any other Substance of Abuse during the last 90 days?: No Positive Blood Alcohol level on Presentation? [PCS.BAL]: No Evidence of Increased Autonomic Activity (i.e. HR>120, tremor, sweating, agitation, nausea)?: No Result: 6
[2022-01-15] MEDS: POTASSIUM CHLORIDE 20 MEQ/100 ML BAG 50 MEQ IVPB (18:48)
[2022-01-15 19:15] LABS: PHOSPHORUS 10.1 mg/dL (2.6-4.7)
[2022-01-15 19:25] LABS: HCO3 (Venous) 6 mmol/L (23-28); O2 Sat (Venous) 76 %; TCO2 (Venous) 6 mmol/L (24-29); pCO2 (Venous) 24 mmHg (41-51); pO2 (Venous) 52 mmHg
[2022-01-15 19:26] LABS: pH (Venous) 6.99 (7.31-7.41)
[2022-01-15 19:41] LABS: Anion Gap 32.7 mmol/L (3-11); BUN 46 mg/dL (7-18); CO2 6.3 mmol/L (21.0-32.0); CREATININE 3.1 mg/dL (0.70-1.30); Calcium 8.8 mg/dL (8.5-10.1); Chloride 91 mmol/L (98-107); Potassium 5.4 mmol/L (3.5-5.1); Sodium 130 mmol/L (136-145)
[2022-01-15 19:55] LABS: Calculated LDL 145 mg/dL (<100); Cholesterol 244 mg/dL (<200); HDL Cholesterol 33 mg/dL (40-60); Triglyceride 333 mg/dL (<150)
[2022-01-15 20:00] LABS: Glucose 766 mg/dL (74-106)
[2022-01-15 20:01] LABS: Troponin I < 50 ng/L (<or=60)
[2022-01-15] MEDS: Apixaban 5 MG TAB PO (20:19)
[2022-01-15] MEDS: Sodium Bicarbonate 50 MEQ/50 ML SYR IVP (20:19)
[2022-01-15] MEDS: POTASSIUM CHLORIDE/0.9% NACL 1,000 ML 250 MEQ IV (21:05)
[2022-01-15] MEDS: AZITHROMYCIN 500 MG in Normal Saline 250 ML 250 MG IVPB (21:32)
[2022-01-15 22:03] LABS: Anion Gap 25.2 mmol/L (3-11); BUN 42 mg/dL (7-18); CO2 11.8 mmol/L (21.0-32.0); CREATININE 2.6 mg/dL (0.70-1.30); Calcium 8.7 mg/dL (8.5-10.1); Chloride 94 mmol/L (98-107); Estimated GFR 25.48 (mL/min/1.73m2); Potassium 3.9 mmol/L (3.5-5.1); Sodium 131 mmol/L (136-145)
[2022-01-15 22:04] LABS: Glucose 522 mg/dL (74-106)
[2022-01-15 23:01] LABS: Bilirubin Moderate (Negative); Blood Moderate (Negative); Clarity Clear (Clear); Glucose 500 mg/dL (Negative); Ketones 80 mg/dL (Negative); Leukocyte Esterase Negative (Negative); Nitrite Negative (Negative); Specific Gravity 1.025 (1.005-1.025); Urobilinogen 0.2 EU/dL (Up TO 0.2); pH 5.5 (5-8)
[2022-01-15 23:10] LABS: Bacteria Rare HPF (Negative); C & S Indicated? No; Casts 0-2 Hyaline LPF (Negative); Crystals Few Amorphous HPF (Negative); Epithelial Cells Rare HPF (Negative); Mucus Moderate (Negative); RBC 0-2 HPF (0-2); WBC 0-2 HPF (0-5)
[2022-01-16] VITALS (76 sets, daily range): BP systolic 97–122; BP diastolic 59–78; PULSE 57–80; RESP 9–25; TEMP 36.4–37.2; O2SAT 88–99
--- NOTE | 2022-01-16 | DI.CT_ITS ---
Exam(s) CT CHEST WO EXAM: CT CHEST WO CLINICAL HISTORY: lung cancer; ?pneumonia. TECHNIQUE: Imaging protocol: Axial computed tomography images were obtained and coronal and sagittal reformatted images were created and reviewed. COMPARISON: No exams were available for comparison FINDINGS: Tracheobronchial tree: Patent where visualized. Pulmonary parenchyma: Mild centrilobular emphysematous changes are present. Small ground-glass opaci ties are seen in the dependent portion of the right upper lobe. There is a rounded 7.1 x 8.6 cm mass in the left lower lobe with surrounding infiltrate which may represent atelectasis or superimposed p neumonia. There is a moderate right pleural effusion. Mediastinum and Cristiana: No dominant adenopathy or fluid collection. The esophagus is unremarkable. Thyroid gland: Unremarkable. Pleura: No effusion or pneumothorax. Heart: The heart is not dilated. There is moderate coronary artery calcification present. No pericar dial effusion. Aorta: Thoracic aorta non-dilated. Mild atherosclerosis. Lymph nodes: Within normal limits. Tubes, Catheters, and Lines: There is a right subclavian central venous catheter. The tip of the cat heter is in good position at the junction of the superior vena cava and right atrium. Soft tissues: There is mild bilateral gynecomastia. There is a 3.2 x 1.9 cm in capsulated cystic les ion in the subcutaneous tissues in the left back. This may represent a benign cyst. Please correlat e with physical exam. Bones:Within normal limits for the patient's age. IMPRESSION: 1. 7.1 x 8.6 cm mass in the left lower lobe. Findings are suspicious for neoplasm. Empyema or locul ated pleural effusion cannot be entirely excluded. 2. Left lower lobe infiltrate which may represent atelectasis or superimposed pneumonia. 3. Moderate right pleural effusion. RADIATION DOSE DELIVERED: 576.87mGy.cm Total DLP 576.87mGy.cm Total DLP DATA REPOSITORY: All CT scans at this facility are submitted to the National Radiology Data Registry (NRDR) Dose Index Registry (DIR) with the [employer] (ACR). RADIATION OPTIMIZATION: All CT scans at this facility use at least one of these dose optimization te chniques: automated exposure control; mA and/or kV adjustment per patient size (includes targeted exa ms where dose is matched to clinical indication); or iterative reconstruction.
[2022-01-16 00:35] LABS: Anion Gap 18.5 mmol/L (3-11); BUN 36 mg/dL (7-18); CO2 14.5 mmol/L (21.0-32.0); CREATININE 1.9 mg/dL (0.70-1.30); Chloride 101 mmol/L (98-107); Estimated GFR 36.59 (mL/min/1.73m2); Glucose 349 mg/dL (74-106); Sodium 134 mmol/L (136-145)
[2022-01-16] MEDS: POTASSIUM CHLORIDE/0.9% NACL 1,000 ML 250 MEQ IV ×3 (01:15→11:28)
[2022-01-16] MEDS: POTASSIUM CHLORIDE/D5-0.45NACL 1,000 ML 150 MEQ IV ×2 (02:30→17:03)
[2022-01-16 03:20] LABS: Anion Gap 17.5 mmol/L (3-11); BUN 34 mg/dL (7-18); CO2 15.5 mmol/L (21.0-32.0); CREATININE 1.9 mg/dL (0.70-1.30); Calcium 8.4 mg/dL (8.5-10.1); Chloride 102 mmol/L (98-107); Estimated GFR 36.59 (mL/min/1.73m2); Glucose 363 mg/dL (74-106); Potassium 3.9 mmol/L (3.5-5.1); Sodium 135 mmol/L (136-145)
[2022-01-16 06:19] LABS: Abs Immature Grans 0.11 10^3/uL (0.0-0.06); Absolute Basophil Count 0.01 10^3/uL (0.0-0.2); Absolute Monocyte Count 0.37 10^3/uL (0.1-0.8); Basophils % 0.1; HCT 31.2 % (40.0-50.0); Immature Grans % 0.9; Lymphocytes % 2.9; MCHC 31.4 % (32.0-36.0); MCV 86 fL (80-95); MPV 10.5 fL (8.0-11.0); Monocytes % 2.9; Neutrophils % 93.2; RBC 3.63 10^6/uL (4.36-5.78); RDW 15.3 % (11.8-14.1); RDW-SD 48.6 fL
[2022-01-16 06:21] LABS: Absolute Lymphocyte Count 0.37 10^3/uL (1.2-3.4); Absolute Neutrophil Count 12.02 10^3/uL (1.2-6.7)
[2022-01-16 06:24] LABS: HGB 9.8 g/dL (13.5-17.5); Platelet Count 318 10^3/uL (130-400)
[2022-01-16 06:40] LABS: ALT 10 U/L (16-63); AST < 5 U/L (15-37); Albumin 2.6 g/dL (3.4-5.0); Alkaline Phosphatase 78 U/L (46-116); Anion Gap 13.9 mmol/L (3-11); BUN 30 mg/dL (7-18); Bilirubin, Total 0.2 mg/dL (0.2-1.0); CO2 18.1 mmol/L (21.0-32.0); CREATININE 1.7 mg/dL (0.70-1.30); Calcium 8.4 mg/dL (8.5-10.1); Chloride 103 mmol/L (98-107); Glucose 383 mg/dL (74-106); Magnesium 1.9 mg/dL (1.8-2.4); Potassium 3.9 mmol/L (3.5-5.1); Sodium 135 mmol/L (136-145); Total Protein 6.1 g/dL (6.4-8.2)
[2022-01-16 06:42] LABS: PHOSPHORUS 2.3 mg/dL (2.6-4.7)
--- NOTE | 2022-01-16 08:00 | DI.CT_ITS ---
Exam(s) CT ABDOMEN PELVIS WO EXAM: CT ABDOMEN PELVIS WO CLINICAL HISTORY: acute pancreatitis. TECHNIQUE: Imaging Protocol: Axial computed tomography images with coronal and sagittal reformatted images were created and reviewed. COMPARISON: No exams were available for comparison FINDINGS: ABDOMEN: Liver: Normal density. There is a cyst in the left lobe of the liver. Gallbladder and biliary tract: No radiodense calculus or biliary ductal dilation. Pancreas: Normal density, no abnormal calcifications or inflammatory process. Spleen: Normal. Kidneys: Normal size, contour and axis.No radiodense stones or obstructive uropathy. No masses seen. Adrenal glands: No mass is seen. Lymph nodes: Within normal limits. Abdominal Aorta: Abdominal portion non-dilated. Mild atherosclerosis. PELVIS: Bladder:Symmetric distention, no gross wall thickening. Bowel: No obstruction or bowel wall thickening. Appendix is unremarkable. There few diverticula seen in the colon but no evidence of acute diverticulitis. Peritoneal cavity: No ascites, collection or mesenteric inflammatory response. No free air. Reproductive organs: Within normal limits. Bones: Within normal limits. Soft Tissues: There is a small fat containing umbilical hernia. There is a small fat containing righ t inguinal hernia. IMPRESSION: 1. No acute abdominal or pelvic process. 2. No peripancreatic inflammation or fluid collection is seen. 3. Please refer to the CT scan of the chest for findings in the lung bases. RADIATION DOSE DELIVERED: 904.11mGy.cm Total DLP DATA REPOSITORY: All CT scans at this facility are submitted to the National Radiology Data Registry (NRDR) Dose Index Registry (DIR) with the [employer] (ACR). RADIATION OPTIMIZATION: All CT scans at this facility use at least one of these dose optimization te chniques: automated exposure control; mA and/or kV adjustment per patient size (includes targeted exa ms where dose is matched to clinical indication); or iterative reconstruction.
[2022-01-16] MEDS: Budesonide/Formoterol 160/4.5 6 GM 60 PUFF INH IH ×2 (08:20→20:35)
[2022-01-16] MEDS: Albuterol/Ipratropium 3 ML UPD VIAL UPD ×3 (08:20→20:35)
--- NOTE | 2022-01-16 08:23 | INITIAL_ITS ---
- If Service Date Differs Date of service: 01/16/22 Time of Service: 08:23 Care Management Initial Assess REASON FOR HOSPITALIZATION:: DKA (diabetic ketoacidosis), LAUREN (acute kidney injury), R/O pneumonia. PAST MEDICAL HISTORY/PAST SURGICAL HISTORY:: All Active Problems . DKA (diabetic ketoacidosis) (Acute). History of chemotherapy (Acute). History of lung cancer (Acute). LAUREN (acute kidney injury) (Acute). Pancreatitis (Chronic). Medical History . Brain metastases. Deep vein thrombosis (DVT) of right upper extremity. Near occlusive thrombus R internal jugular vein on 07/09/21. Stage IV adenocarcinoma of lung PREVIOUS FUNCTIONAL STATUS/SOCIAL/FAMILY SUPPORTS:: Yehuda lives in [facility] with his Christiana. He is unable to work at this time due to his health. Yehuda is followed by Dr. Cornell at [facility] and gets Chemo at [facility]. Yehuda is due for an infusion on . Yehuda drives and is independent at baseline. His is very supportive and drives him to his appointments. CURRENT FUNCTIONAL STATUS:: Yehuda was lying in bed with the HOB elevated when CM met with him. He is alert, oriented and easy to engage in conversation. His and son are at his bedside. Yehuda requires additional imaging and medical work up. He is interested in Advance Directives. He lives in [place], CM provided him with [place] Adv. Directive forms. ADVANCE DIRECTIVES:: None on file, CM provided patient with [place] Adv. Directive Forms. Has patient been provided with info about the portal/API?: Yes Did the patient sign up for the portal?: No CODE STATUS:: Full Code INSURANCE COVERAGE / FINANCIAL ISSUES:: Commercial INS. [facility] CURRENT HOME/COMMUNITY SERVICES/EQUIPMENT:: Lung CA: Currently receiving treatment through [facility], Dr. Cornell. PRIMARY CARE PHYSICIAN:: Gene Aquino POTENTIAL DISCHARGE NEEDS:: Follow up appointments with PCP and oncology. Diabetic supplies. PATIENT/FAMILY EDUCATION NEEDS:: Review discharge instructions, limitations, medications and plan to follow up with community providers. ask me three. TRANSPORTATION:: Via private vehicle with family. PLAN:: Yehuda is being closely monitored and treated in the ICU. He is on an insulin drip and receiving IV fluids and potassium replacement. Anticipate, he will transport home via private vehicle with family when medically ready. He will follow up with his PCP and Oncology. He will also need new RX's for diabetic supplies.
[2022-01-16] MEDS: Pantoprazole 40 MG TABCR PO (08:28)
[2022-01-16] MEDS: Apixaban 5 MG TAB PO ×2 (08:29→20:53)
[2022-01-16] MEDS: Normal Saline Flush 10 ML SYR (08:30)
[2022-01-16] MEDS: predniSONE 10 MG TAB PO (08:30)
[2022-01-16] MEDS: INSULIN REGULAR IN 0.9 % NACL 100 UNIT/100 ML BAG 5.5 UNIT IV (08:31)
[2022-01-16 08:53] LABS: Anion Gap 12.1 mmol/L (3-11); BUN 28 mg/dL (7-18); CO2 19.9 mmol/L (21.0-32.0); CREATININE 1.6 mg/dL (0.70-1.30); Calcium 9.3 mg/dL (8.5-10.1); Chloride 102 mmol/L (98-107); Estimated GFR 44.62 (mL/min/1.73m2); Glucose 335 mg/dL (74-106); Potassium 3.5 mmol/L (3.5-5.1); Sodium 134 mmol/L (136-145)
--- NOTE | 2022-01-16 08:55 | PGE_ITS ---
Date of Service Date of service: 01/16/22 Time of Service: 08:55 Assessment and Plan Assessment and plan (1) DKA (diabetic ketoacidosis): Status: Acute Assessment and plan: Continue insulin drip add Lantus 15 units this morning. Once his anion gap closes I will add NovoLog and overlap with his insulin drip before discontinuing his insulin drip. Critical care time spent interviewing and examining the patient, reviewing studies, discussing case with patient's nurse and consulting physicians was 30 minutes (2) LAUREN (acute kidney injury): Status: Acute Assessment and plan: Improving but still needs IV fluids. (3) Pancreatitis: Status: Chronic Assessment and plan: Tolerating clear liquid diet without any abdominal pain nausea or vomiting. We will advance his diet. Continue IV fluids until we are sure his DKA is resolved and he is tolerating a regular diabetic diet. (4) Acute purulent bronchitis: Status: Acute Assessment and plan: Continue Rocephin and azithromycin. Transition over to oral antibiotics over the next day. Add Acapella and incentive spirometer. (5) History of lung cancer: Status: Acute Assessment and plan: currently under active treatment through [facility], Dr. Cornell. Patient is on pembrolizumab (Keytruda). 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 He underwent radiation therapy and chemotherapy and is on maintenance chemotherapy w/ Keytruda. His last infusion was 3 weeks ago this . He is due for infusion this . His chest CT scan was 3 wks ago. (6) Deep vein thrombosis (DVT) of right upper extremity: Assessment and plan: dx 07/09/21 in the right IJV near the subclavian metaport catheter. currently on apixaban Subjective Subjective Interval history since last seen: Mr. Monteiro is feeling much better. No further diarrhea. No abdominal pain or nausea. Currently on clear liquid diet which we will advance to a regular diabetic diet. He is still in DKA with fluctuating blood sugars. This morning his blood sugars were down to 321 but now they have bounced up to 412 after breakfast. He remains on insulin drip at 7.5 units/h. His acidosis has improved. His carbon dioxide is up to 19 point His anion gap is down to 12.1. Still has some azotemia but that is also improving BUN 28 creatinine is 1.6. Tell Mr. Monteiro that I am adding some basal insulin including Lantus to try to help wean him off the insulin drip. I told him he still in diabetic ketoacidosis and therefore needs the insulin drip. Also explained to him that he has pancreatitis. He is going down for CT scan of his abdomen. Exam Narrative Exam Narrative: Yehuda alert and oriented sitting up talking with his family. He just completed his breakfast. Lungs are clear to auscultation on the right anteriorly and posteriorly. Left lung has markedly absent breath sounds at the left base posteriorly but the upper lung catherine are clear. Heart is regular rate and rhythm with a soft systolic murmur over the apex no thrill heave or gallop. Murmur is grade 1 or 6. Abdomen soft nondistended nontender normal bowel sounds no guarding no rebound tenderness. Extremities without peripheral cyanosis or edema Objective Last Vital Signs Temp 36.7 C 01/16/22 04:49 Pulse 57 L 01/16/22 06:01 Resp 20 01/16/22 06:10 BP 115/70 01/16/22 06:01 Pulse Ox 95 01/16/22 06:10 Laboratory Results - last 24 hr 01/15/22 01/15/22 01/15/22 15:30 16:00 16:00 WBC 23.13 H RBC 5.03 Hgb 13.4 L Hct 46.1 MCV 92 MCH 26.6 L MCHC 29.1 L RDW 15.9 H Plt Count 627 H MPV 10.9 Immature Gran % 2.3 Neutrophils % 88.2 Lymphocytes % 1.7 Monocytes % 7.3 Eosinophils % 0.1 Basophils % 0.4 Nucleated RBC % 0.0 Absolute Neutrophils 20.40 H Absolute Lymphocytes 0.39 L Absolute Monocytes 1.69 H Absolute Eosinophils 0.02 Absolute Basophils 0.09 RBC Morphology Normal ABG Sample Site ABG pH ABG pCO2 ABG pO2 ABG HCO3 ABG Total CO2 ABG O2 Saturation ABG Base Excess VBG pH VBG pCO2 VBG pO2 VBG HCO3 VBG Total CO2 VBG O2 Saturation VBG Base Excess Sodium 128 L Potassium 5.3 H Chloride 86 L Carbon Dioxide 5.9 L Anion Gap 36.1 H BUN 42 H Creatinine 2.8 H Estimated GFR/1.73 m2 23.39 Glucose 810 H* Calcium 9.9 Phosphorus Magnesium 2.6 H Total Bilirubin 0.4 AST 16 ALT 16 Alkaline Phosphatase 124 H Troponin I < 50 Total Protein 8.9 H Albumin 3.9 Triglycerides Total Cholesterol LDL Cholesterol, Calc HDL Cholesterol Amylase Lipase Urine Color Urine Clarity Urine pH Ur Specific [place] Urine Protein Urine Ketones Urine Blood Urine Nitrite Urine Bilirubin Urine Urobilinogen Ur Leukocyte Esterase Urine RBC Urine WBC Ur Epithelial Cells Urine Crystals Urine Bacteria Urine Casts Urine Mucus Ur Culture Indicated? Urine Glucose COVID-19 Source Nasal/Nares SARS-CoV-2 (PCR) Negative 01/15/22 01/15/22 01/15/22 16:00 16:00 16:57 WBC RBC Hgb Hct MCV MCH MCHC RDW Plt Count MPV Immature Gran % Neutrophils % Lymphocytes % Monocytes % Eosinophils % Basophils % Nucleated RBC % Absolute Neutrophils Absolute Lymphocytes Absolute Monocytes Absolute Eosinophils Absolute Basophils RBC Morphology ABG Sample Site Left Radial ABG pH 7.03 L* ABG pCO2 15 L* ABG pO2 94 ABG HCO3 4 L ABG Total CO2 4 L ABG O2 Saturation 95 ABG Base Excess < -15 L VBG pH VBG pCO2 VBG pO2 VBG HCO3 VBG Total CO2 VBG O2 Saturation VBG Base Excess Sodium Potassium Chloride Carbon Dioxide Anion Gap BUN Creatinine Estimated GFR/1.73 m2 Glucose Calcium Phosphorus 10.1 H Magnesium Total Bilirubin AST ALT Alkaline Phosphatase Troponin I Total Protein Albumin Triglycerides Total Cholesterol LDL Cholesterol, Calc HDL Cholesterol Amylase 171 H Lipase 1006 H Urine Color Urine Clarity Urine pH Ur Specific [place] Urine Protein Urine Ketones Urine Blood Urine Nitrite Urine Bilirubin Urine Urobilinogen Ur Leukocyte Esterase Urine RBC Urine WBC Ur Epithelial Cells Urine Crystals Urine Bacteria Urine Casts Urine Mucus Ur Culture Indicated? Urine Glucose COVID-19 Source SARS-CoV-2 (PCR) 01/15/22 01/15/22 01/15/22 19:17 19:17 19:17 WBC RBC Hgb Hct MCV MCH MCHC RDW Plt Count MPV Immature Gran % Neutrophils % Lymphocytes % Monocytes % Eosinophils % Basophils % Nucleated RBC % Absolute Neutrophils Absolute Lymphocytes Absolute Monocytes Absolute Eosinophils Absolute Basophils RBC Morphology ABG Sample Site ABG pH ABG pCO2 ABG pO2 ABG HCO3 ABG Total CO2 ABG O2 Saturation ABG Base Excess VBG pH VBG pCO2 VBG pO2 VBG HCO3 VBG Total CO2 VBG O2 Saturation VBG Base Excess Sodium 130 L Potassium 5.4 H Chloride 91 L Carbon Dioxide 6.3 L Anion Gap 32.7 H BUN 46 H Creatinine 3.1 H Estimated GFR/1.73 m2 20.80 Glucose 766 H* Calcium 8.8 Phosphorus Magnesium Total Bilirubin AST ALT Alkaline Phosphatase Troponin I < 50 Total Protein Albumin Triglycerides 333 H Total Cholesterol 244 H LDL Cholesterol, Calc 145 H HDL Cholesterol 33 L Amylase Lipase Urine Color Urine Clarity Urine pH Ur Specific [place] Urine Protein Urine Ketones Urine Blood Urine Nitrite Urine Bilirubin Urine Urobilinogen Ur Leukocyte Esterase Urine RBC Urine WBC Ur Epithelial Cells Urine Crystals Urine Bacteria Urine Casts Urine Mucus Ur Culture Indicated? Urine Glucose COVID-19 Source SARS-CoV-2 (PCR) 01/15/22 01/15/22 01/15/22 19:17 19:17 21:34 WBC RBC Hgb Hct MCV MCH MCHC RDW Plt Count MPV Immature Gran % Neutrophils % Lymphocytes % Monocytes % Eosinophils % Basophils % Nucleated RBC % Absolute Neutrophils Absolute Lymphocytes Absolute Monocytes Absolute Eosinophils Absolute Basophils RBC Morphology ABG Sample Site ABG pH ABG pCO2 ABG pO2 ABG HCO3 ABG Total CO2 ABG O2 Saturation ABG Base Excess VBG pH 6.99 L* VBG pCO2 24 L VBG pO2 52 VBG HCO3 6 L VBG Total CO2 6 L VBG O2 Saturation 76 VBG Base Excess < -15 L Sodium Cancelled 131 L Potassium Cancelled 3.9 D Chloride Cancelled 94 L Carbon Dioxide Cancelled 11.8 L Anion Gap Cancelled 25.2 H BUN Cancelled 42 H Creatinine Cancelled 2.6 H Estimated GFR/1.73 m2 Cancelled 25.48 Glucose Cancelled 522 H* Calcium Cancelled 8.7 Phosphorus Magnesium Total Bilirubin AST ALT Alkaline Phosphatase Troponin I Total Protein Albumin Triglycerides Total Cholesterol LDL Cholesterol, Calc HDL Cholesterol Amylase Lipase Urine Color Urine Clarity Urine pH Ur Specific [place] Urine Protein Urine Ketones Urine Blood Urine Nitrite Urine Bilirubin Urine Urobilinogen Ur Leukocyte Esterase Urine RBC Urine WBC Ur Epithelial Cells Urine Crystals Urine Bacteria Urine Casts Urine Mucus Ur Culture Indicated? Urine Glucose COVID-19 Source SARS-CoV-2 (PCR) 01/15/22 01/16/22 01/16/22 22:30 00:14 02:58 WBC RBC Hgb Hct MCV MCH MCHC RDW Plt Count MPV Immature Gran % Neutrophils % Lymphocytes % Monocytes % Eosinophils % Basophils % Nucleated RBC % Absolute Neutrophils Absolute Lymphocytes Absolute Monocytes Absolute Eosinophils Absolute Basophils RBC Morphology ABG Sample Site ABG pH ABG pCO2 ABG pO2 ABG HCO3 ABG Total CO2 ABG O2 Saturation ABG Base Excess VBG pH VBG pCO2 VBG pO2 VBG HCO3 VBG Total CO2 VBG O2 Saturation VBG Base Excess Sodium 134 L 135 L Potassium 4.0 3.9 Chloride 101 102 Carbon Dioxide 14.5 L 15.5 L Anion Gap 18.5 H 17.5 H BUN 36 H 34 H Creatinine 1.9 H 1.9 H Estimated GFR/1.73 m2 36.59 36.59 Glucose 349 H 363 H Calcium 8.0 L 8.4 L Phosphorus Magnesium Total Bilirubin AST ALT Alkaline Phosphatase Troponin I Total Protein Albumin Triglycerides Total Cholesterol LDL Cholesterol, Calc HDL Cholesterol Amylase Lipase Urine Color Yellow Urine Clarity Clear Urine pH 5.5 Ur Specific [place] 1.025 Urine Protein 100 H Urine Ketones 80 H Urine Blood Moderate H Urine Nitrite Negative Urine Bilirubin Moderate H Urine Urobilinogen 0.2 Ur Leukocyte Esterase Negative Urine RBC 0-2 Urine WBC 0-2 Ur Epithelial Cells Rare Urine Crystals Few Amorphous Urine Bacteria Rare Urine Casts 0-2 Hyaline Urine Mucus Moderate Ur Culture Indicated? No Urine Glucose 500 H COVID-19 Source SARS-CoV-2 (PCR) 01/16/22 01/16/22 01/16/22 05:28 05:28 05:28 WBC 12.90 H RBC 3.63 L Hgb 9.8 L D Hct 31.2 L MCV 86 D MCH 27.0 MCHC 31.4 L D RDW 15.3 H Plt Count 318 MPV 10.5 Immature Gran % 0.9 Neutrophils % 93.2 Lymphocytes % 2.9 Monocytes % 2.9 Eosinophils % 0.0 Basophils % 0.1 Nucleated RBC % 0.0 Absolute Neutrophils 12.02 H Absolute Lymphocytes 0.37 L Absolute Monocytes 0.37 Absolute Eosinophils 0.00 Absolute Basophils 0.01 RBC Morphology ABG Sample Site ABG pH ABG pCO2 ABG pO2 ABG HCO3 ABG Total CO2 ABG O2 Saturation ABG Base Excess VBG pH VBG pCO2 VBG pO2 VBG HCO3 VBG Total CO2 VBG O2 Saturation VBG Base Excess Sodium 135 L Potassium 3.9 Chloride 103 Carbon Dioxide 18.1 L Anion Gap 13.9 H BUN 30 H Creatinine 1.7 H Estimated GFR/1.73 m2 41.60 Glucose 383 H Calcium 8.4 L Phosphorus 2.3 L Magnesium 1.9 Total Bilirubin 0.2 AST < 5 L ALT 10 L Alkaline Phosphatase 78 Troponin I Total Protein 6.1 L Albumin 2.6 L Triglycerides Total Cholesterol LDL Cholesterol, Calc HDL Cholesterol Amylase Lipase Urine Color Urine Clarity Urine pH Ur Specific [place] Urine Protein Urine Ketones Urine Blood Urine Nitrite Urine Bilirubin Urine Urobilinogen Ur Leukocyte Esterase Urine RBC Urine WBC Ur Epithelial Cells Urine Crystals Urine Bacteria Urine Casts Urine Mucus Ur Culture Indicated? Urine Glucose COVID-19 Source SARS-CoV-2 (PCR) 01/16/22 08:22 WBC RBC Hgb Hct MCV MCH MCHC RDW Plt Count MPV Immature Gran % Neutrophils % Lymphocytes % Monocytes % Eosinophils % Basophils % Nucleated RBC % Absolute Neutrophils Absolute Lymphocytes Absolute Monocytes Absolute Eosinophils Absolute Basophils RBC Morphology ABG Sample Site ABG pH ABG pCO2 ABG pO2 ABG HCO3 ABG Total CO2 ABG O2 Saturation ABG Base Excess VBG pH VBG pCO2 VBG pO2 VBG HCO3 VBG Total CO2 VBG O2 Saturation VBG Base Excess Sodium 134 L Potassium 3.5 Chloride 102 Carbon Dioxide 19.9 L Anion Gap 12.1 H BUN 28 H Creatinine 1.6 H Estimated GFR/1.73 m2 44.62 Glucose 335 H Calcium 9.3 Phosphorus Magnesium Total Bilirubin AST ALT Alkaline Phosphatase Troponin I Total Protein Albumin Triglycerides Total Cholesterol LDL Cholesterol, Calc HDL Cholesterol Amylase Lipase Urine Color Urine Clarity Urine pH Ur Specific [place] Urine Protein Urine Ketones Urine Blood Urine Nitrite Urine Bilirubin Urine Urobilinogen Ur Leukocyte Esterase Urine RBC Urine WBC Ur Epithelial Cells Urine Crystals Urine Bacteria Urine Casts Urine Mucus Ur Culture Indicated? Urine Glucose COVID-19 Source SARS-CoV-2 (PCR) PAWSS Have you Been Recently Intoxicated or Drunk Within the Last 30 days?: Yes Have you Ever Experienced Previous Episodes of Alcohol Withdrawal?: Yes Have you ever Experienced Withdrawal Seizures?: Yes Have you ever Experienced Delirium Tremens(DT)s?: Yes Have you ever undergone Alcohol Rehabilitation Treatment (i.e, inpt ot outpatient treatment programs)?: Yes Have you ever Experienced Blackouts?: Yes Have you ever Combined Alcohol with other Downers within the last 90 days?: No Have you ever Combined Alcohol with any other Substance of Abuse during the last 90 days?: No Positive Blood Alcohol level on Presentation? [PCS.BAL]: No Evidence of Increased Autonomic Activity (i.e. HR>120, tremor, sweating, agitation, nausea)?: No Result: 6
[2022-01-16] MEDS: Insulin Glargine 300 UNITS/3 ML PEN 15 UNITS SC ×2 (09:13→19:59)
[2022-01-16] MEDS: cefTRIAXone 1 GM/50 ML BAG IVPB (10:19)
[2022-01-16 12:02] LABS: BUN 25 mg/dL (7-18); CREATININE 1.3 mg/dL (0.70-1.30); Calcium 9.2 mg/dL (8.5-10.1); Chloride 103 mmol/L (98-107); Glucose 293 mg/dL (74-106); Potassium 3.3 mmol/L (3.5-5.1); Sodium 134 mmol/L (136-145)
[2022-01-16] MEDS: Mylanta Suspension 30 ML CUP PO ×2 (12:45→17:56)
[2022-01-16] MEDS: Normal Saline Flush 10 ML SYR IVP ×2 (14:18→14:19)
[2022-01-16 14:38] LABS: Anion Gap 9.1 mmol/L (3-11); BUN 24 mg/dL (7-18); CO2 20.9 mmol/L (21.0-32.0); CREATININE 1.2 mg/dL (0.70-1.30); Calcium 9.2 mg/dL (8.5-10.1); Chloride 105 mmol/L (98-107); Glucose 188 mg/dL (74-106); Potassium 3.7 mmol/L (3.5-5.1); Sodium 135 mmol/L (136-145)
[2022-01-16] MEDS: Acetaminophen 325 MG TAB PO (15:59)
--- NOTE | 2022-01-16 16:09 | CHAPLAIN ---
Yehuda was resting in bed when I visited. He said his and son had just left. Yehuda is from [place], [place]. He told be about where he lives in [place]. We didn't talk about his health issues. I will continue to visit.
[2022-01-16 17:51] LABS: Anion Gap 10.2 mmol/L (3-11); BUN 23 mg/dL (7-18); CO2 19.8 mmol/L (21.0-32.0); CREATININE 1.1 mg/dL (0.70-1.30); Calcium 9.2 mg/dL (8.5-10.1); Chloride 104 mmol/L (98-107); Glucose 171 mg/dL (74-106); Potassium 3.3 mmol/L (3.5-5.1); Sodium 134 mmol/L (136-145)
[2022-01-16] MEDS: Insulin Aspart 300 UNITS/3 ML PEN 6 UNITS SC (19:54)
[2022-01-16 20:18] LABS: Legionella Ag Detection Urine Negative (Negative)
[2022-01-16] MEDS: AZITHROMYCIN 250 MG in Normal Saline 250 ML IVPB (20:34)
[2022-01-16] MEDS: Potassium Chloride 10 MEQ CAPCR 40 MEQ PO (20:34)
[2022-01-16] MEDS: Water,Injection,Sterile 10 ML VIAL (20:53)
[2022-01-16] MEDS: POTASSIUM CHLORIDE 20 MEQ/100 ML BAG 50 MEQ IVPB (21:57)
[2022-01-16 22:05] LABS: Anion Gap 10.3 mmol/L (3-11); BUN 17 mg/dL (7-18); CO2 16.7 mmol/L (21.0-32.0); CREATININE 0.6 mg/dL (0.70-1.30); Chloride 111 mmol/L (98-107); Glucose 116 mg/dL (74-106); Potassium 3.1 mmol/L (3.5-5.1); Sodium 138 mmol/L (136-145)
[2022-01-16] MEDS: Insulin Aspart 300 UNITS/3 ML PEN SC (22:41)
[2022-01-17] VITALS (28 sets, daily range): BP systolic 98–146; BP diastolic 52–97; PULSE 51–73; RESP 2–26; TEMP 36.5–37.3; O2SAT 93–99
[2022-01-17 00:20] LABS: Anion Gap 9.2 mmol/L (3-11); BUN 21 mg/dL (7-18); CO2 21.8 mmol/L (21.0-32.0); CREATININE 0.9 mg/dL (0.70-1.30); Calcium 9.2 mg/dL (8.5-10.1); Chloride 103 mmol/L (98-107); Glucose 203 mg/dL (74-106); Potassium 3.9 mmol/L (3.5-5.1); Sodium 134 mmol/L (136-145)
[2022-01-17] MEDS: Acetaminophen 325 MG TAB PO ×3 (00:23→17:15)
[2022-01-17] MEDS: Normal Saline Flush 10 ML SYR IVP ×3 (00:26→22:14)
--- NOTE | 2022-01-17 02:51 | NUR.NOTE ---
note from 01/[id number] gtt set at 3 u per hr. Reported to be at 6 u per hr. Nothing documented on SEP from previous shift for last change to insulin drip. Still running at 3 u at start of 06-03.
[2022-01-17 05:40] LABS: Abs Immature Grans 0.05 10^3/uL (0.0-0.06); Absolute Lymphocyte Count 0.78 10^3/uL (1.2-3.4); Absolute Monocyte Count 0.83 10^3/uL (0.1-0.8); Basophils % 0.2; Eosinophils % 0.2; HCT 29.5 % (40.0-50.0); HGB 9.8 g/dL (13.5-17.5); Immature Grans % 0.4; MCH 27.8 pg (27.0-33.0); MCHC 33.2 % (32.0-36.0); MCV 84 fL (80-95); MPV 10.9 fL (8.0-11.0); Monocytes % 6.4; Neutrophils % 86.8; Platelet Count 258 10^3/uL (130-400); RBC 3.52 10^6/uL (4.36-5.78); RDW 15.9 % (11.8-14.1); RDW-SD 48.6 fL; WBC 12.92 10^3/uL (4.4-10.8)
[2022-01-17 05:47] LABS: Absolute Basophil Count 0.03 10^3/uL (0.0-0.2); Absolute Eosinophil Count 0.03 10^3/uL (0.0-0.7); Absolute Neutrophil Count 11.21 10^3/uL (1.2-6.7)
[2022-01-17 06:07] LABS: ALT 15 U/L (16-63); AST 10 U/L (15-37); Albumin 2.8 g/dL (3.4-5.0); Alkaline Phosphatase 69 U/L (46-116); Anion Gap 7.5 mmol/L (3-11); BUN 20 mg/dL (7-18); Bilirubin, Total 0.3 mg/dL (0.2-1.0); CO2 23.5 mmol/L (21.0-32.0); Calcium 9.3 mg/dL (8.5-10.1); Chloride 101 mmol/L (98-107); Glucose 331 mg/dL (74-106); PHOSPHORUS < 2.0 mg/dL (2.6-4.7); Potassium 4.2 mmol/L (3.5-5.1); Sodium 132 mmol/L (136-145)
[2022-01-17 06:10] LABS: Magnesium 1.9 mg/dL (1.8-2.4)
[2022-01-17] MEDS: Insulin Glargine 300 UNITS/3 ML PEN 10 UNITS SC (07:40)
[2022-01-17] MEDS: Pantoprazole 40 MG TABCR PO (07:42)
[2022-01-17] MEDS: Insulin Aspart 300 UNITS/3 ML PEN SC ×7 (07:44→21:00)
[2022-01-17] MEDS: Budesonide/Formoterol 160/4.5 6 GM 60 PUFF INH IH ×2 (08:38→20:42)
[2022-01-17] MEDS: Albuterol/Ipratropium 3 ML UPD VIAL UPD ×3 (08:38→20:32)
[2022-01-17] MEDS: cefTRIAXone 1 GM/50 ML BAG IVPB (08:42)
--- NOTE | 2022-01-17 08:57 | CMPROGNOTE_ITS ---
- If Service Date Differs Date of service: 01/17/22 Time of Service: 08:57 Care Management Progress Note S/O: Yehuda is being closely monitored and treated in the ICU. He is on IV ABX. Yehuda transitioned to basal bolus insulin and had a diabetic consult today. Yehuda's infusion at [facility] ([facility]) scheduled for today was cancelled due to his hospitalization (CM notified [facility]). [facility] will call patient directly to reschedule. Palliative care consult is ordered. CM provided patient with ([place]) AD forms. CM updated pts HIPAA and contact info. A: 56 year old male admitted to [facility] on 01/16/22 for DKA (diabetic ketoacidosis), LAUREN (acute kidney injury), R/O pneumonia. P: Yehuda is being closely monitored and treated in the ICU. He is on an insulin drip and receiving IV fluids and potassium replacement. Anticipate, he will transport home via private vehicle with family when medically ready. He will follow up with his PCP and Oncologist. [facility] will call patient directly to reschedule his infusion, as his 01/17/22 appt needed to be cancelled. Yehuda will need new RX's for diabetic supplies.
[2022-01-17] MEDS: predniSONE 10 MG TAB PO (09:10)
[2022-01-17] MEDS: Apixaban 5 MG TAB PO ×2 (09:10→20:38)
--- NOTE | 2022-01-17 09:56 | W.PM.PROGNOT ---
Date of Service Date of service: 01/17/22 Time of Service: 09:57 Assessment and Plan Assessment and plan (1) DKA (diabetic ketoacidosis): Status: Resolved Assessment and plan: Off of insulin gtt and transitioned to basal bolus insulin. Continue to up-titrate lantus and intensify prandial coverage. ?gastroparesis - as below (2) Pneumonia: Status: Acute Assessment and plan: Continue empiric ceftriaxone and azithromycin. (3) Newly diagnosed diabetes: Status: Acute Assessment and plan: Check A1C and consult diabetes education. (4) Gastroparesis: Status: Suspected Assessment and plan: Obtain a gastric emptying study. (5) LAUREN (acute kidney injury): Status: Resolved Assessment and plan: doing well off of IVF - will monitor (6) Pancreatitis: Status: Resolved Assessment and plan: without evidence of gallstones. Pancreatitis not seen on CT. Triglycerides 333. Tolerating regular consistency diet. (7) History of lung cancer: Status: Acute Assessment and plan: With mets to the brain and thyroid. [facility] oncology: Dr. Cornell, on pembrolizumab (Keytruda) and prednisone 10 mg PO daily. s/p radiation therapy and chemotherapy and is on maintenance immunotherapy w/ Keytruda. Due for an infusion today but is missing it due to hospitalization. I have asked the patient to notify his outpatient oncology office. I have consulted palliative care. (8) Deep vein thrombosis (DVT) of right upper extremity: Assessment and plan: Present on admission, in right IJV near the subclavian mediport. Continue eliquis (9) Discharge planning issues: Status: Acute Assessment and plan: Full code. Transfer out of ICU. Palliative care consult. Subjective Subjective Interval history since last seen: Mr Monteiro states that he is feeling better today. The only source of discomfort for him is the feeling of fullness in his upper abdomen, like the food is just sitting there. He denies dizziness, chest pain, shortness of breath, nausea at this time. Exam Narrative Exam Narrative: General: Pleasant male who appears comfortable in bed, A&Ox3, NAD HEENT: EOMI, MMM Heart: RRR, no m/r/g Lungs: faint crackles at B bases; on RA Abdomen: soft, nontender, nondistended Extremities: 2+ pedal pulses B, no edema BLEs Objective Last Vital Signs Temp 37.0 C 01/17/22 09:43 Pulse 65 01/17/22 08:39 Resp 26 H 01/17/22 09:00 BP 132/82 01/17/22 07:27 Pulse Ox 99 01/17/22 08:39 Laboratory Results - last 24 hr 01/15/22 01/15/22 01/16/22 16:00 22:30 11:10 WBC RBC Hgb Hct MCV MCH MCHC RDW Plt Count MPV Immature Gran % Neutrophils % Lymphocytes % Monocytes % Eosinophils % Basophils % Nucleated RBC % Absolute Neutrophils Absolute Lymphocytes Absolute Monocytes Absolute Eosinophils Absolute Basophils Sodium 134 L Potassium 3.3 L Chloride 103 Carbon Dioxide 21.0 Anion Gap 10.0 BUN 25 H Creatinine 1.3 Estimated GFR/1.73 m2 56.70 Glucose 293 H Calcium 9.2 Phosphorus Magnesium Total Bilirubin AST ALT Alkaline Phosphatase Total Protein Albumin Cortisol 49 Urine Legionella Ag Negative 01/16/22 01/16/22 01/16/22 14:10 17:20 21:45 WBC RBC Hgb Hct MCV MCH MCHC RDW Plt Count MPV Immature Gran % Neutrophils % Lymphocytes % Monocytes % Eosinophils % Basophils % Nucleated RBC % Absolute Neutrophils Absolute Lymphocytes Absolute Monocytes Absolute Eosinophils Absolute Basophils Sodium 135 L 134 L 138 Potassium 3.7 3.3 L 3.1 L Chloride 105 104 111 H Carbon Dioxide 20.9 L 19.8 L 16.7 L Anion Gap 9.1 10.2 10.3 BUN 24 H 23 H 17 Creatinine 1.2 1.1 0.6 L Estimated GFR/1.73 m2 >= 60.00 >= 60.00 >= 60.00 Glucose 188 H 171 H 116 H Calcium 9.2 9.2 7.0 L Phosphorus Magnesium Total Bilirubin AST ALT Alkaline Phosphatase Total Protein Albumin Cortisol Urine Legionella Ag 01/17/22 01/17/22 01/17/22 00:05 05:32 05:32 WBC RBC Hgb Hct MCV MCH MCHC RDW Plt Count MPV Immature Gran % Neutrophils % Lymphocytes % Monocytes % Eosinophils % Basophils % Nucleated RBC % Absolute Neutrophils Absolute Lymphocytes Absolute Monocytes Absolute Eosinophils Absolute Basophils Sodium 134 L Cancelled 132 L Potassium 3.9 Cancelled 4.2 Chloride 103 Cancelled 101 Carbon Dioxide 21.8 Cancelled 23.5 Anion Gap 9.2 Cancelled 7.5 BUN 21 H Cancelled 20 H Creatinine 0.9 Cancelled 1.0 Estimated GFR/1.73 m2 >= 60.00 Cancelled >= 60.00 Glucose 203 H Cancelled 331 H Calcium 9.2 Cancelled 9.3 Phosphorus < 2.0 L Magnesium 1.9 Total Bilirubin 0.3 AST 10 L ALT 15 L Alkaline Phosphatase 69 Total Protein 6.0 L Albumin 2.8 L Cortisol Urine Legionella Ag 01/17/22 05:32 WBC 12.92 H RBC 3.52 L Hgb 9.8 L Hct 29.5 L MCV 84 MCH 27.8 MCHC 33.2 D RDW 15.9 H Plt Count 258 MPV 10.9 Immature Gran % 0.4 Neutrophils % 86.8 Lymphocytes % 6.0 Monocytes % 6.4 Eosinophils % 0.2 Basophils % 0.2 Nucleated RBC % 0.0 Absolute Neutrophils 11.21 H Absolute Lymphocytes 0.78 L Absolute Monocytes 0.83 H Absolute Eosinophils 0.03 Absolute Basophils 0.03 Sodium Potassium Chloride Carbon Dioxide Anion Gap BUN Creatinine Estimated GFR/1.73 m2 Glucose Calcium Phosphorus Magnesium Total Bilirubin AST ALT Alkaline Phosphatase Total Protein Albumin Cortisol Urine Legionella Ag PAWSS Have you Been Recently Intoxicated or Drunk Within the Last 30 days?: Yes Have you Ever Experienced Previous Episodes of Alcohol Withdrawal?: Yes Have you ever Experienced Withdrawal Seizures?: Yes Have you ever Experienced Delirium Tremens(DT)s?: Yes Have you ever undergone Alcohol Rehabilitation Treatment (i.e, inpt ot outpatient treatment programs)?: Yes Have you ever Experienced Blackouts?: Yes Have you ever Combined Alcohol with other Downers within the last 90 days?: No Have you ever Combined Alcohol with any other Substance of Abuse during the last 90 days?: No Positive Blood Alcohol level on Presentation? [PCS.BAL]: No Evidence of Increased Autonomic Activity (i.e. HR>120, tremor, sweating, agitation, nausea)?: No Result: 6
[2022-01-17 10:20] LABS: Lab Add On Test DONE
[2022-01-17 10:52] LABS: Hemoglobin A1C 8.1 % (<5.7)
[2022-01-17] MEDS: guaiFENesin 600 MG TABCR PO ×2 (11:42→20:30)
--- NOTE | 2022-01-17 12:48 | W.DIABETESNO ---
Date of service: 01/17/22 Time of Service: 12:48 Diabetes Note Reason for Visit: Diabetes education for newly dx diabetes NOTE: Met with Mr. Monteiro to start reviewing diabetes education. We discussed eating strategies for suspected gastroparesis. We reviewed the plate method to portion out food and moderate carbohydrate intake. Provided written materials. Mr. Monteiro demonstrates a good understanding of instructions and teaching given. Awaiting A1C. Will meet again with Mr. Monteiro tomorrow once we have an idea of what meds for diabetes that he will be discharging on. Will provide further dietary instruction as well as instructions on monitoring. Will provide instruction on giving himself insulin should he be discharged on it. Thank you for the consult. Time Spent in Nutritional Counseling and Treatment: 15 minutes
[2022-01-17] MEDS: AZITHROMYCIN 250 MG in Normal Saline 250 ML IVPB (20:39)
[2022-01-17] MEDS: Normal Saline 500 ML 30 ML IVPB (20:40)
[2022-01-17] MEDS: Insulin Glargine 300 UNITS/3 ML PEN 25 UNITS SC (21:01)
[2022-01-18] VITALS (8 sets, daily range): BP systolic 110–134; BP diastolic 72–87; PULSE 61–78; RESP 1–19; TEMP 36.5–37.2; O2SAT 89–96
[2022-01-18] MEDS: Acetaminophen 325 MG TAB PO (04:27)
--- NOTE | 2022-01-18 05:41 | NUR.NOTE ---
Nursing Note: Patient complained about feeling that theres something wrong with him because he cant sleep and when he closes his eyes he will drool and will start to pant. Vital signs are stable and blood sugar is way better than it was. Patient then relaxes after hearing that his numbers are fine. Patient denied history of anxiety but this RN educated patient about anxiety and its manifestation. Patient refused any anxiety medication.Charge nurse aware.
[2022-01-18 05:49] LABS: Abs Immature Grans 0.06 10^3/uL (0.0-0.06); Absolute Basophil Count 0.02 10^3/uL (0.0-0.2); Absolute Eosinophil Count 0.04 10^3/uL (0.0-0.7); Absolute Lymphocyte Count 0.87 10^3/uL (1.2-3.4); Absolute Monocyte Count 0.67 10^3/uL (0.1-0.8); Absolute Neutrophil Count 6.13 10^3/uL (1.2-6.7); Basophils % 0.3; Eosinophils % 0.5; HGB 9.6 g/dL (13.5-17.5); Immature Grans % 0.8; Lymphocytes % 11.2; MCH 26.8 pg (27.0-33.0); MCV 84 fL (80-95); MPV 10.7 fL (8.0-11.0); Monocytes % 8.6; Neutrophils % 78.6; Platelet Count 253 10^3/uL (130-400); RBC 3.58 10^6/uL (4.36-5.78); RDW 16.2 % (11.8-14.1); RDW-SD 50.1 fL; WBC 7.79 10^3/uL (4.4-10.8)
[2022-01-18 05:56] LABS: Iron 39 ug/dL (65-175); Total Iron Binding Capacity 160 ug/dL (250-450); Transferrin Sat 24 % (20-55)
[2022-01-18 05:59] LABS: Anion Gap 8.5 mmol/L (3-11); BUN 13 mg/dL (7-18); CO2 28.5 mmol/L (21.0-32.0); CREATININE 0.6 mg/dL (0.70-1.30); Calcium 9.1 mg/dL (8.5-10.1); Chloride 100 mmol/L (98-107); Glucose 110 mg/dL (74-106); Sodium 137 mmol/L (136-145)
[2022-01-18 06:04] LABS: Potassium 2.9 mmol/L (3.5-5.1)
[2022-01-18 06:20] LABS: Ferritin 799 ng/mL (26-388); Folate 5.7 ng/mL (8.6-20.0); Magnesium 1.8 mg/dL (1.8-2.4); Vitamin B12 1013 pg/mL (193-986)
--- NOTE | 2022-01-18 09:40 | CMPROGNOTE_ITS ---
- If Service Date Differs Date of service: 01/18/22 Time of Service: 09:40 Care Management Progress Note S/O: Yehuda was sitting up in bed when CM met with him. He is alert, oriented and easy to engage in conversation. Yehuda is 93% on RA. He is receiving IV ABX and steroids. Yehuda was also started on Insulin and is receiving diabetic education during this admission. He is able to demonstrate good understanding. Yehuda had a Palliative Care consult. CM will continue to support patient and his discharge planning needs. Yehuda was due for an infusion at [facility] ([facility]), yesterday. [facility] is aware of his hospitalization and will call him to reschedule. A: 56 year old male admitted to [facility] on 01/16/22 for DKA (diabetic ketoacidosis), LAUREN (acute kidney injury), R/O pneumonia. P: Yehuda is being closely monitored and treated. Anticipate, he will transport home via private vehicle with family when medically ready. He will follow up with community providers including, his PCP and Oncologist. [facility] will call patient directly to reschedule his infusion. Yehuda will need new RX's for diabetic supplies.
[2022-01-18] MEDS: Budesonide/Formoterol 160/4.5 6 GM 60 PUFF INH IH ×2 (09:52→20:10)
[2022-01-18] MEDS: predniSONE 10 MG TAB PO (10:05)
[2022-01-18] MEDS: Folic Acid 1 MG TAB PO (10:06)
[2022-01-18] MEDS: Pantoprazole 40 MG TABCR PO (10:06)
[2022-01-18] MEDS: Apixaban 5 MG TAB PO (10:06)
[2022-01-18] MEDS: guaiFENesin 600 MG TABCR PO ×2 (10:06→20:11)
[2022-01-18] MEDS: Potassium Chloride 20 MEQ TABCR 40 MEQ PO (10:11)
[2022-01-18] MEDS: Insulin Aspart 300 UNITS/3 ML PEN SC ×5 (10:13→17:55)
[2022-01-18] MEDS: cefTRIAXone 1 GM/50 ML BAG IVPB (10:27)
[2022-01-18] MEDS: POTASSIUM CHLORIDE 20 MEQ/100 ML BAG 50 MEQ IVPB ×2 (10:31→11:27)
--- NOTE | 2022-01-18 12:33 | W.DIABETESNO ---
Date of service: 01/18/22 Time of Service: 12:33 Diabetes Note Reason for Visit: diabetes education NOTE: Brief visit with Mr. Monteiro today. He tells me that he has been giving himself insulin and he verbalizes an understanding of basal insulin and novolog (aspart insulin). He demonstrates how he would use the correction dose based on his pre-meal blood sugar. We discussed that the morning blood sugar will determine if his basal dose is correct but that he will not change that dosing on a regular basis. I see that his A1c is 8.1 I suspect he may eventually be on just metformin and/or a GLP-1. I told him that the hospitalist will determine what diabetes meds he will need at discharge. Mr. Monteiro reports that he will not be leaving today. He noted that there was blood in his stool and he is currently NPO. Please call the food processing chemist kitchen at [phone] and they will contact me should he be discharged over the weekend. I would like to follow up on his diabetes education and see where he is needing more information. Mr. Monteiro demonstrates an excellent understanding of carb counting, insulin dosing, monitoring etc. Will continue to monitor his weight, PO, and blood sugars. Time Spent in Nutritional Counseling and Treatment: 10 minutes
--- NOTE | 2022-01-18 14:06 | W.PALLCONSUL ---
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 He is currently hospitalized for DKA. He was seen in his room for a palliative visit. He was alone for the visit. He reports that he was given AD and has been working on it. He has named his to be his health care agent. He states he wants CPR attempted and that he does not want to be on a ventilator for an extended period of time. He feels that he has things in place otherwise. We discussed the things that Palliative can offer him. He agrees to have Palliative call to offer an outpatient visit after discarge. 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 He is currently hospitalized for DKA. Palliative was consulted to discuss goals of care. He is a FULL CODE. He has been provided AD by [facility], he is working on completing them. He has named his to be his health care agent. Palliative will contact him to offer outpatient follow up. Review of Systems Narrative: Feels he is going well overall. He reports feeling better. Offers no additional complaints. PFSH All Active Problems (Updated 01/18/22 @ 16:30 by Carmina Chow NP) Goals of care, counseling/discussion (Acute) Melena (Acute) Discharge planning issues (Acute) Newly diagnosed diabetes (Acute) Pneumonia (Acute) Acute purulent bronchitis (Acute) History of chemotherapy (Acute) History of lung cancer (Acute) Medical History Brain metastases Deep vein thrombosis (DVT) of right upper extremity Near occlusive thrombus R internal jugular vein on 07/09/21 Stage IV adenocarcinoma of lung Surgical History History of hernia repair Family History Sister Cancer childhood head and neck cancer; ?osteosarcoma; underwent jaw resection Father Diabetes Social History Smoking/Tobacco Use Status: Former Tobacco Use Smoking risk assessment performed?: Yes Alcohol Intake: current Alcohol Intake frequency: a few times a month Substance use type: does not use Do you feel safe at home: Yes Do you feel safe in your relationship?: Yes Exam Narrative Exam Narrative: General: middle aged, well appearing man, sitting up on the bed in his hospital room. He is awake and alert, pleasant and talkative, in NAD. HEENT: normocephalic, atraumatic, EOMI, mucous membranes moist. Neck: supple. Respiratory: respirations appear even and unlabored. Extremities: moves all 4 extremities freely. Results Last Vital Signs Temp 36.7 C 01/18/22 08:08 Pulse 61 01/18/22 08:08 Resp 18 01/18/22 08:08 BP 134/84 01/18/22 08:08 Pulse Ox 93 01/18/22 08:08 Labs Result diagrams: 01/18/22 05:14 01/18/22 05:14 Labs: Laboratory Results - last 24 hr 01/18/22 01/18/22 01/18/22 05:14 05:14 05:14 WBC RBC Hgb Hct MCV MCH MCHC RDW Plt Count MPV Immature Gran % Neutrophils % Lymphocytes % Monocytes % Eosinophils % Basophils % Nucleated RBC % Absolute Neutrophils Absolute Lymphocytes Absolute Monocytes Absolute Eosinophils Absolute Basophils Sodium 137 Potassium 2.9 L D Chloride 100 Carbon Dioxide 28.5 Anion Gap 8.5 BUN 13 Creatinine 0.6 L Estimated GFR/1.73 m2 >= 60.00 Glucose 110 H Calcium 9.1 Magnesium 1.8 Iron 39 L TIBC 160 L Transferrin % Sat 24 Ferritin 799 H Vitamin B12 1013 H Folate 5.7 L 01/18/22 05:14 WBC 7.79 RBC 3.58 L Hgb 9.6 L Hct 30.0 L MCV 84 MCH 26.8 L MCHC 32.0 D RDW 16.2 H Plt Count 253 MPV 10.7 Immature Gran % 0.8 Neutrophils % 78.6 Lymphocytes % 11.2 Monocytes % 8.6 Eosinophils % 0.5 Basophils % 0.3 Nucleated RBC % 0.0 Absolute Neutrophils 6.13 Absolute Lymphocytes 0.87 L Absolute Monocytes 0.67 Absolute Eosinophils 0.04 Absolute Basophils 0.02 Sodium Potassium Chloride Carbon Dioxide Anion Gap BUN Creatinine Estimated GFR/1.73 m2 Glucose Calcium Magnesium Iron TIBC Transferrin % Sat Ferritin Vitamin B12 Folate
[2022-01-18 14:52] LABS: Streptococcus Pneumoniae Ag, U Negative (Negative)
--- NOTE | 2022-01-18 15:41 | PGE_ITS ---
Date of Service Date of service: 01/18/22 Time of Service: 15:41 Assessment and Plan Assessment and plan (1) Melena: Status: Acute Assessment and plan: Hemodynamically stable. Recheck H/H. General surgery consulted. On clears. Hold anticoagulation. Continue IV protonix BID + carafate. (2) Newly diagnosed diabetes: Status: Acute Assessment and plan: A1C of 8.1 I do suspect that eventually, Mr Monteiro will be able to be switched to Po medications, but given that he had presented with a true DKA, the plan is to discharge him home with basal bolus insulin. Consider continuous glucose monitoring. Will need to follow up w/ diabetes education. (3) DKA (diabetic ketoacidosis): Status: Resolved Assessment and plan: Tolerating basal bolus insulin. He needs more prandial coverage. FBG 140, pre lunch sugar 261. I understand that prednisone may be a factor - but I think introducing NPH as his third insulin might be confusing. Keep long acting insulin the same. Will need a gastric emptying study as outpatient. (4) Pneumonia: Status: Acute Assessment and plan: Continue empiric ceftriaxone and azithromycin. (5) Gastroparesis: Status: Suspected Assessment and plan: Obtain a gastric emptying study (likely as outpatient). (6) LAUREN (acute kidney injury): Status: Resolved Assessment and plan: doing well off of IVF - will monitor (7) Pancreatitis: Status: Resolved Assessment and plan: without evidence of gallstones. Pancreatitis not seen on CT. Triglycerides 333. (8) History of lung cancer: Status: Acute Assessment and plan: With mets to the brain and thyroid. [facility] oncology: Dr. Cornell, on pembrolizumab (Keytruda) and prednisone 10 mg PO daily. s/p radiation therapy and chemotherapy and is on maintenance immunotherapy w/ Keytruda. Due for an infusion yesterday.I have asked the patient to notify his outpatient oncology office. Seen by palliative care today and is willing to follow up as outpatient. He was given paperwork to fill out advanced directives. (9) Deep vein thrombosis (DVT) of right upper extremity: Assessment and plan: Present on admission, in right IJV near the subclavian mediport. Holding eliquis given melena. (10) Discharge planning issues: Status: Acute Assessment and plan: Full code. Continues to require hospitalization. Palliative care following. Subjective Subjective Interval history since last seen: Mr Monteiro had a black heme + BM. We discussed his indication for being on blood thinners - it is for the IJ thrombus he had in 07/17 and he has been on eliquis ever since. Denies dizziness, chest pain, shortness of breath, nausea. Still feels like food just sits there and then slowly passes through his gut. No pain. He feels comfortable injecting himself with insulin and has been doing so. Exam Narrative Exam Narrative: General: Pleasant male who appears comfortable in bed, A&Ox3, NAD HEENT: EOMI, MMM Heart: RRR, no m/r/g Lungs: CTAB Abdomen: soft, nontender, nondistended Extremities: 2+ pedal pulses B, no edema BLEs Objective Last Vital Signs Temp 37.0 C 01/18/22 14:55 Pulse 78 01/18/22 14:55 Resp 18 01/18/22 14:55 BP 127/86 01/18/22 14:55 Pulse Ox 95 01/18/22 14:55 Laboratory Results - last 24 hr 01/16/22 01/18/22 01/18/22 08:45 05:14 05:14 WBC RBC Hgb Hct MCV MCH MCHC RDW Plt Count MPV Immature Gran % Neutrophils % Lymphocytes % Monocytes % Eosinophils % Basophils % Nucleated RBC % Absolute Neutrophils Absolute Lymphocytes Absolute Monocytes Absolute Eosinophils Absolute Basophils Sodium Potassium Chloride Carbon Dioxide Anion Gap BUN Creatinine Estimated GFR/1.73 m2 Glucose Calcium Magnesium 1.8 Iron 39 L TIBC 160 L Transferrin % Sat 24 Ferritin 799 H Vitamin B12 1013 H Folate 5.7 L Ur Strep pneumoniae Ag Negative 01/18/22 01/18/22 05:14 05:14 WBC 7.79 RBC 3.58 L Hgb 9.6 L Hct 30.0 L MCV 84 MCH 26.8 L MCHC 32.0 D RDW 16.2 H Plt Count 253 MPV 10.7 Immature Gran % 0.8 Neutrophils % 78.6 Lymphocytes % 11.2 Monocytes % 8.6 Eosinophils % 0.5 Basophils % 0.3 Nucleated RBC % 0.0 Absolute Neutrophils 6.13 Absolute Lymphocytes 0.87 L Absolute Monocytes 0.67 Absolute Eosinophils 0.04 Absolute Basophils 0.02 Sodium 137 Potassium 2.9 L D Chloride 100 Carbon Dioxide 28.5 Anion Gap 8.5 BUN 13 Creatinine 0.6 L Estimated GFR/1.73 m2 >= 60.00 Glucose 110 H Calcium 9.1 Magnesium Iron TIBC Transferrin % Sat Ferritin Vitamin B12 Folate Ur Strep pneumoniae Ag PAWSS Have you Been Recently Intoxicated or Drunk Within the Last 30 days?: Yes Have you Ever Experienced Previous Episodes of Alcohol Withdrawal?: Yes Have you ever Experienced Withdrawal Seizures?: Yes Have you ever Experienced Delirium Tremens(DT)s?: Yes Have you ever undergone Alcohol Rehabilitation Treatment (i.e, inpt ot outpatient treatment programs)?: Yes Have you ever Experienced Blackouts?: Yes Have you ever Combined Alcohol with other Downers within the last 90 days?: No Have you ever Combined Alcohol with any other Substance of Abuse during the last 90 days?: No Positive Blood Alcohol level on Presentation? [PCS.BAL]: No Evidence of Increased Autonomic Activity (i.e. HR>120, tremor, sweating, ag itation, nausea)?: No Result: 6
[2022-01-18 16:30] LABS: HCT 32.9 % (40.0-50.0); HGB 10.7 g/dL (13.5-17.5)
--- NOTE | 2022-01-18 17:00 | W.SURGCON ---
Date of service: 01/18/22 Time of Service: : Assessment and Plan Assessment and plan (1) Melena: Status: Acute Assessment and plan: -Suspect pepto bismol causing black stool -Can do hemoccult for reassurance but not specific and may result in false positive -Advance diet as tolerated (2) DKA (diabetic ketoacidosis): Status: Resolved (3) History of chemotherapy: Status: Acute (4) History of lung cancer: Status: Acute (5) LAUREN (acute kidney injury): Status: Resolved History of Present Illness Narrative: 56 year old male admitted for DKA, had black stool since yesterday so surgery was consulted to rule out GI bleed. Patient admits to taking pepto bismol prior to admission which I suspect is the reason. He has been on oral anticoagulation for 6 months for a DVT and has not had issues with GI bleeding in the past. Hb has been stable as well as vital signs. Review of Systems Constitutional Constitutional: Reports as per HPI and Reports system reviewed and no additional complaints, except as documented Gastrointestinal Gastrointestinal: Denies abdominal pain, Denies hematochezia, Denies change in stool character, Denies constipation, Reports heartburn, Denies diarrhea, Reports nausea (resolved), Reports vomiting (resolved, likely secondary to DKA) and Reports other (black stool) [facility] All Active Problems (Updated 01/18/22 @ 16:30 by Carmina Chow NP) Goals of care, counseling/discussion (Acute) Melena (Acute) Discharge planning issues (Acute) Newly diagnosed diabetes (Acute) Pneumonia (Acute) Acute purulent bronchitis (Acute) History of chemotherapy (Acute) History of lung cancer (Acute) Medical History Brain metastases Deep vein thrombosis (DVT) of right upper extremity Near occlusive thrombus R internal jugular vein on 07/09/21 Stage IV adenocarcinoma of lung Surgical History History of hernia repair Family History Sister Cancer childhood head and neck cancer; ?osteosarcoma; underwent jaw resection Father Diabetes Social History Smoking/Tobacco Use Status: Former Tobacco Use Smoking risk assessment performed?: Yes Alcohol Intake: current Alcohol Intake frequency: a few times a month Substance use type: does not use Do you feel safe at home: Yes Do you feel safe in your relationship?: Yes Exam Const General: cooperative, healthy appearing, comfortable, no acute distress and well hydrated Nutritional Appearance: average body habitus Resp Effort & Inspection: normal respiratory effort and able to speak in complete sentences Cardio Rate: regular rate Rhythm: regular rhythm GI Inspection: normal to inspection and non-distended Palpation: soft, no guarding and nontender Percussion: normal to percussion Skin General skin exam: no rashes or lesions noted Neuro General: patient alert, patient awake and patient oriented x3 Results Last Vital Signs Temp 98.6 F 01/18/22 14:55 Pulse 78 01/18/22 14:55 Resp 18 01/18/22 14:55 BP 127/86 01/18/22 14:55 Pulse Ox 95 01/18/22 14:55 Labs Result diagrams: 01/18/22 16:17 01/18/22 05:14 Labs: Laboratory Results - last 24 hr 01/16/22 01/18/22 01/18/22 08:45 05:14 05:14 WBC RBC Hgb Hct MCV MCH MCHC RDW Plt Count MPV Immature Gran % Neutrophils % Lymphocytes % Monocytes % Eosinophils % Basophils % Nucleated RBC % Absolute Neutrophils Absolute Lymphocytes Absolute Monocytes Absolute Eosinophils Absolute Basophils Sodium Potassium Chloride Carbon Dioxide Anion Gap BUN Creatinine Estimated GFR/1.73 m2 Glucose Calcium Magnesium 1.8 Iron 39 L TIBC 160 L Transferrin % Sat 24 Ferritin 799 H Vitamin B12 1013 H Folate 5.7 L Ur Strep pneumoniae Ag Negative 01/18/22 01/18/22 01/18/22 05:14 05:14 16:17 WBC 7.79 RBC 3.58 L Hgb 9.6 L 10.7 L Hct 30.0 L 32.9 L MCV 84 MCH 26.8 L MCHC 32.0 D RDW 16.2 H Plt Count 253 MPV 10.7 Immature Gran % 0.8 Neutrophils % 78.6 Lymphocytes % 11.2 Monocytes % 8.6 Eosinophils % 0.5 Basophils % 0.3 Nucleated RBC % 0.0 Absolute Neutrophils 6.13 Absolute Lymphocytes 0.87 L Absolute Monocytes 0.67 Absolute Eosinophils 0.04 Absolute Basophils 0.02 Sodium 137 Potassium 2.9 L D Chloride 100 Carbon Dioxide 28.5 Anion Gap 8.5 BUN 13 Creatinine 0.6 L Estimated GFR/1.73 m2 >= 60.00 Glucose 110 H Calcium 9.1 Magnesium Iron TIBC Transferrin % Sat Ferritin Vitamin B12 Folate Ur Strep pneumoniae Ag
[2022-01-18] MEDS: Sucralfate 1 GM TAB PO ×2 (17:13→20:11)
[2022-01-18] MEDS: Pantoprazole 40 MG VIAL IVP (20:09)
[2022-01-18] MEDS: AZITHROMYCIN 250 MG in Normal Saline 250 ML IVPB (20:09)
[2022-01-18] MEDS: Normal Saline Flush 10 ML SYR IVP (20:09)
[2022-01-18] MEDS: Insulin Glargine 300 UNITS/3 ML PEN 25 UNITS SC (20:10)
[2022-01-18 22:11] LABS: HCT 33.1 % (40.0-50.0); HGB 10.8 g/dL (13.5-17.5)
[2022-01-19 04:17] VITALS: BP 125/87; PULSE 65; RESP 18; TEMP 36.7; O2SAT 93
[2022-01-19 06:19] LABS: HCT 35.4 % (40.0-50.0); HGB 11.6 g/dL (13.5-17.5); MCH 27.1 pg (27.0-33.0); MCHC 32.8 % (32.0-36.0); MCV 83 fL (80-95); MPV 11.1 fL (8.0-11.0); Platelet Count 260 10^3/uL (130-400); RBC 4.28 10^6/uL (4.36-5.78); RDW 16.7 % (11.8-14.1); RDW-SD 49.9 fL; WBC 7.06 10^3/uL (4.4-10.8)
[2022-01-19 06:45] LABS: PHOSPHORUS 4.6 mg/dL (2.6-4.7)
[2022-01-19 06:54] LABS: Anion Gap 8.2 mmol/L (3-11); BUN 10 mg/dL (7-18); CO2 28.8 mmol/L (21.0-32.0); CREATININE 0.7 mg/dL (0.70-1.30); Calcium 9.2 mg/dL (8.5-10.1); Chloride 100 mmol/L (98-107); Glucose 210 mg/dL (74-106); Potassium 3.5 mmol/L (3.5-5.1); Sodium 137 mmol/L (136-145)
[2022-01-19] MEDS: Insulin Aspart 300 UNITS/3 ML PEN SC ×4 (08:02→12:27)
[2022-01-19 08:08] VITALS: BP 134/89; PULSE 72; RESP 20; TEMP 36.9; O2SAT 94
[2022-01-19] MEDS: Normal Saline Flush 10 ML SYR IVP ×2 (08:25→15:06)
[2022-01-19] MEDS: guaiFENesin 600 MG TABCR PO (08:25)
[2022-01-19] MEDS: Budesonide/Formoterol 160/4.5 6 GM 60 PUFF INH IH (08:25)
[2022-01-19] MEDS: predniSONE 10 MG TAB PO (08:25)
[2022-01-19] MEDS: Folic Acid 1 MG TAB PO (08:25)
[2022-01-19] MEDS: Sucralfate 1 GM TAB PO ×2 (08:25→11:25)
[2022-01-19] MEDS: Pantoprazole 40 MG VIAL IVP (08:25)
[2022-01-19] MEDS: cefTRIAXone 1 GM/50 ML BAG IVPB (08:26)
--- NOTE | 2022-01-19 09:37 | W.PM.PROGNOT ---
Date of Service Date of service: 01/19/22 Time of Service: 09:37 Assessment and Plan Assessment and plan (1) Melena: Status: Acute Assessment and plan: -Suspect pepto bismol causing black stool -Hb stable -Can do hemoccult for reassurance but not specific and may result in false positive -Advance diet as tolerated -Outpatient follow up for screening colonoscopy -Will sign off please call with questions (2) DKA (diabetic ketoacidosis): Status: Resolved (3) History of chemotherapy: Status: Acute (4) History of lung cancer: Status: Acute (5) LAUREN (acute kidney injury): Status: Resolved Subjective Subjective Patient reports: no new complaints, feels better and tolerating a regular diet Exam Const General: cooperative, healthy appearing, comfortable, no acute distress and well hydrated Nutritional Appearance: average body habitus Resp Effort & Inspection: normal respiratory effort, able to speak in complete sentences, no cough and no respiratory distress Cardio Rate: regular rate Rhythm: regular rhythm GI Inspection: normal to inspection and non-distended Palpation: soft, no guarding and nontender Percussion: normal to percussion Skin General skin exam: no rashes or lesions noted Neuro General: patient alert, patient awake and patient oriented x3 Objective Last Vital Signs Temp 98.4 F 01/19/22 08:08 Pulse 72 01/19/22 08:08 Resp 20 01/19/22 08:08 BP 134/89 01/19/22 08:08 Pulse Ox 94 01/19/22 08:08 Laboratory Results - last 24 hr 01/16/22 01/18/22 01/18/22 08:45 16:17 22:05 WBC RBC Hgb 10.7 L 10.8 L Hct 32.9 L 33.1 L MCV MCH MCHC RDW Plt Count MPV Sodium Potassium Chloride Carbon Dioxide Anion Gap BUN Creatinine Estimated GFR/1.73 m2 Glucose Calcium Phosphorus Magnesium Ur Strep pneumoniae Ag Negative 01/19/22 01/19/22 01/19/22 05:53 05:53 05:53 WBC 7.06 RBC 4.28 L Hgb 11.6 L Hct 35.4 L MCV 83 MCH 27.1 MCHC 32.8 D RDW 16.7 H Plt Count 260 MPV 11.1 H Sodium 137 Potassium 3.5 Chloride 100 Carbon Dioxide 28.8 Anion Gap 8.2 BUN 10 Creatinine 0.7 Estimated GFR/1.73 m2 >= 60.00 Glucose 210 H Calcium 9.2 Phosphorus 4.6 Magnesium 2.0 Ur Strep pneumoniae Ag PAWSS Have you Been Recently Intoxicated or Drunk Within the Last 30 days?: Yes Have you Ever Experienced Previous Episodes of Alcohol Withdrawal?: Yes Have you ever Experienced Withdrawal Seizures?: Yes Have you ever Experienced Delirium Tremens(DT)s?: Yes Have you ever undergone Alcohol Rehabilitation Treatment (i.e, inpt ot outpatient treatment programs)?: Yes Have you ever Experienced Blackouts?: Yes Have you ever Combined Alcohol with other Downers within the last 90 days?: No Have you ever Combined Alcohol with any other Substance of Abuse during the last 90 days?: No Positive Blood Alcohol level on Presentation? [PCS.BAL]: No Evidence of Increased Autonomic Activity (i.e. HR>120, tremor, sweating, agitation, nausea)?: No Result: 6
[2022-01-19 11:26] VITALS: BP 117/80; PULSE 71; RESP 18; TEMP 37.1; O2SAT 93
--- NOTE | 2022-01-19 12:21 | DSE_ITS ---
Date of service: 01/19/22 Time of Service: 12:21 DS: Diagnosis Discharge Diagnosis (1) DKA (diabetic ketoacidosis): Status: Resolved (2) Newly diagnosed diabetes: Status: Acute (3) Melena: Status: Resolved Asessment and Plan: [place] to be due to pepto-bismol and not actually hemodynamically significant bleeding. (4) LAUREN (acute kidney injury): Status: Resolved (5) Pancreatitis: Status: Resolved (6) Gastroparesis due to DM: Status: Suspected (7) Metastatic lung cancer (metastasis from lung to other site): Status: Chronic (8) Deep vein thrombosis (DVT) of right upper extremity: (9) Folate deficiency: Status: Acute Discharge Plan Disposition Patient Disposition: HOME Condition: Serious Discharge Details Reason For Visit: DKA,Lung Cancer,R/O Pnuemonia Admit Date/Time: 01/15/22 18:25 Admit Provider: Luis F Mckeon Attending Provider: Luis F Mckeon Primary Care Provider: Gene Aquino Hospital Course Hospital Course: Mr Monteiro is a 56 year old male with PMHx of metastatic lung cancer, on chronic prednisone therapy and immuntherapy with keytruda, as well as h/o R IJ thrombus on eliquis, who was admitted to [facility] ICU under the hospitalist service on 01/15 having presented to [facility] ED with evidence of DKA, newly diagnosed diabetes, and pneumonia. He was treated with aggressive IVF, insulin infusion until his acidosis corrected, and empiric azithromycin and ceftriaxone. His blood cultures were done at [facility] and were negative. His sputum culture grew normal rajinder. He was transitioned off of insulin drip to basal bolus insulin on 01/16/22. He was transferred out of the ICU on 01/17/22. The patient did have some reports of epigastric discomfort on this admission. His lipase was elevated to 1006. His triglycerides were not sufficiently high to cause pancreatitis. His abdomen and pelvis CT did not show pancreatitis. The symptoms improved on their own and the patient tolerated a regular consistency diet. He did report a sensation of the food sitting in his stomach, and an outpatient gastric emptying study is being ordered on discharge due to suspicion of diabetic gastroparesis. He was noted to have black heme + stools with a stable hemoglobin. His eliquis was placed on hold, he was started on IV PPI and carafate. He was evaluated by surgery who did not feel the dark stools were due to blood and thought they were related to using peptobismol. He will need general surgical follow up to ensure he does not have GI bleeding. For now, he is allowed to return to taking his eliquis. He is being discharged home on omeprazole 40 mg PO daily and a referral to general surgery. He has met with coin purse assembler and learned how to inject himself with insulin. He is being discharged home with prescription for lantus 25 units SC HS as well as insulin aspart 1 unit per 5 grams of carbs consumed and correction of 2 units:50>150. I anticipate that these will need to be titrated by PCP based on his diet. He is going home with a script for a glucometer and strips, but would probably benefit from having a continuous glucose monitor. He should follow up with his PCP and coin purse assembler within the next 1-2 weeks. He is instructed on signs and symptoms of hypoglycemia as well as how to treat it. He met with palliative care and should follow up as outpatient. Care for patient as well as completion of his discharge summary on day of discharge took 60 minutes. Home Meds and New Rx's Prescriptions: New insulin glargine [Lantus Solostar U-100 Insulin] 100 unit/mL (3 mL) Insulin Pen 25 unit subcut HS Qty: 15 0RF insulin aspart U-100 [Novolog Flexpen U-100 Insulin] 100 unit/mL (3 mL) Insulin Pen 1 - 20 unit subcut 0800,1200,1700 Qty: 15 0RF Rx Instructions: Take 1 unit for every 5 grams of carbs consumed with meals. If it is hard to calculate, take 3 units with every meal. Take additional 2 unit for every 50 points that your blood sugar is over 150. folic acid 1 mg Tablet 1 mg PO DAILY Qty: 30 0RF guaifenesin [Mucus Relief ER] 600 mg Tablet Extended Release 12hr 600 mg PO BID PRN PRNQty: 20 0RF azithromycin 250 mg tablet 250 mg PO DAILY Qty: 2 0RF Rx Instructions: Next dose tonight cefpodoxime 200 mg tablet 200 mg PO BID Qty: 4 0RF Rx Instructions: next dose tomorrow morning must administer with a meal/food omeprazole 40 mg capsule,delayed release(DR/EC) 40 mg PO DAILY Qty: 30 0RF (DME) blood-glucose meter Kit See Rx Instructions .Route Qty: 1 0RF Rx Instructions: For blood sugar checks AC and HS (DME) Advanced Gluc Meter Test Strip Strip See Rx Instructions .Route Qty: 100 0RF Rx Instructions: for fingersticks AC and HS (DME) pen needle, diabetic [Pen Needle] 32 gauge x 5/32 needle See Rx Instructions .Route Qty: 100 0RF Rx Instructions: As directed (DME) lancets 32 gauge misc See Rx Instructions .Route Qty: 100 0RF Rx Instructions: For fingersticks AC/HS Continued fluticasone propion-salmeterol 250-50 mcg/dose Blister With Device 1 ea INHALATION Q12H acetaminophen 325 mg Tablet 650 mg PO Q4H prednisone 10 mg Tablet 10 mg PO DAILY albuterol sulfate 90 mcg/actuation Hfa Aerosol Inhaler 2 inh INHALATION Q4H apixaban 5 mg Tablet 5 mg PO BID Discharge Instructions Instructions: Omeprazole (By mouth), Insulin Aspart, Recombinant (By injection), Insulin Glargine (By injection), Diabetic Gastroparesis (DC), Hypoglycemia in a Person with Diabetes (DC), Type 2 Diabetes in Adults: New Diagnosis (DC), Meal Planning with Diabetes Exchanges (DC), Bacterial Pneumonia (DC), Diabetic Hyperglycemia (DC), Diabetes and Nutrition (DC), Diabetes and Exercise (DC) Additional Instructions: Know signs and symptoms of hypoglycemia and always have something with you to correct it. Finish your antibiotics as prescribed. Return to the hospital with any fever, bleeding, chest pain, or shortness of breath. Follow up for your gastric emptying study. Follow up with general surgery for the question of GI bleeding. It is ok to resume taking your eliquis. Take your blood sugars first thing in the morning, before meals, and at bedtime and keep a log. Take it to your PCP and also to the coin purse assembler. Stand Alone Forms: Nursing Discharge Form Referrals: [facility] [Provider Group] (office will contact you.) [facility] [Outside] (Oncology. Please call on Friday to make an appointment. ) Ailyn Garcia RDN, KYRA [CONTROL CLERK HEAD] - (Will call to follow-up appointment. ) Gene Aquino [Primary Care Provider] - (Please call friday to make an appointment.) Alethea Jama DO [OSTEOPATHIC DOCTOR] - (Please call on Friday to make a follow-up appointment. ) Activity:: Activity as Tolerated Equipment/Supplies:: No Equipment Needed Diet:: Carb Counting Discharge Orders Discharge Orders: Discharge Order (Routine); Ordered 01/19/22 Ordered By: Liza Fontenot Other Ambulatory Orders: NM gastric emptying (Routine) Timeframe: 2 Weeks Facility: [facility] - Location: DIAGNOSTIC IMAGING DEPT Ordered By: Liza Fontenot DS: Summary Time Spent with Patient providing and/or coordinating discharge services: Greater than 30 minutes Status at Discharge Functional status at discharge: independent ambulation Overall status at discharge: patient is back to baseline Mental Status: mental status grossly normal Speech and Movement: speech and movement normal Mood: congruent mood Affect: normal affect Exam Narrative Exam Narrative: General: Pleasant male who appears comfortable in bed, A&Ox3, NAD HEENT: EOMI, MMM Heart: RRR, no m/r/g Lungs: CTAB Abdomen: soft, nontender, nondistended Extremities: 2+ pedal pulses B, no edema BLEs Psych Mental Status: mental status grossly normal Speech and Movement: speech and movement normal Mood: congruent mood Affect: normal affect DS: Data Vitals/I&O Vitals and I&O: Vital Signs Temperature 37.1 C 01/19/22 11:26 Temperature Source Tympanic 01/19/22 11:26 Pulse 71 01/19/22 11:26 Pulse Rhythm Regular 01/19/22 08:40 Pulse 73 01/17/22 09:00 Respiratory Rate 18 01/19/22 11:26 Respiratory Effort 01/19/22 08:40 Respiratory Depth Normal 01/19/22 08:40 Respiratory Pattern Normal 01/19/22 02:22 Blood Pressure 117/80 01/19/22 11:26 Blood Pressure Mean 101 01/17/22 17:14 Blood Pressure Position Right Lateral 01/17/22 07:30 Pulse Oximetry 93 01/19/22 11:26 Oxygen Delivery Method Room Air 01/19/22 11:26 Oxygen Flow Rate 0 01/19/22 11:26 Pain Level 0 01/19/22 11:26 Intake & Output 01/18/22 01/19/22 01/19/22 23:59 11:59 23:59 Intake Total 1350 / 1946.667 Output Total / 2 Balance 1348 / 1944.667 -1 Weight 94.4 kg Intake: IV 350 / 446.667 Oral 1000 / 1500 Output: Urine Stool Other: Urine Color Yellow Yellow Urine Appearance Clear Clear Urine Odor None None Comment pT goes to bathroom independently. Stool Occult Blood Negative Stool Size Moderate Large Stool Characteristics Formed Soft Formed Voiding Methods Toilet Toilet Data Completed and Pending Completed studies during hospitalization [Text1]: CT abdomen/pelvis 01/16/22: 1. No acute abdominal or pelvic process. 2. No peripancreatic inflammation or fluid collection is seen. 3. Please refer to the CT scan of the chest for findings in the lung bases.? CT chest 01/16/22: 1. 7.1 x 8.6 cm mass in the left lower lobe.? Findings are suspicious for neoplasm.? Empyema or loculated pleural effusion cannot be entirely excluded. 2. Left lower lobe infiltrate which may represent atelectasis or superimposed pneumonia. 3. Moderate right pleural effusion.? CXR 01/16/22: Limited exam.? Left lower lobe densities and pleural thickening? could represent infiltrate versus postsurgical changes. Labs on day of discharge: Labs from last 24 hours 01/19/22 01/19/22 01/19/22 05:53 05:53 05:53 WBC 7.06 RBC 4.28 L Hgb 11.6 L Hct 35.4 L MCV 83 MCH 27.1 MCHC 32.8 D RDW 16.7 H Plt Count 260 MPV 11.1 H Sodium 137 Potassium 3.5 Chloride 100 Carbon Dioxide 28.8 Anion Gap 8.2 BUN 10 Creatinine 0.7 Estimated GFR/1.73 m2 >= 60.00 Glucose 210 H Calcium 9.2 Phosphorus 4.6 Magnesium 2.0 Ur Strep pneumoniae Ag 01/18/22 01/18/22 01/16/22 22:05 16:17 08:45 WBC RBC Hgb 10.8 L 10.7 L Hct 33.1 L 32.9 L MCV MCH MCHC RDW Plt Count MPV Sodium Potassium Chloride Carbon Dioxide Anion Gap BUN Creatinine Estimated GFR/1.73 m2 Glucose Calcium Phosphorus Magnesium Ur Strep pneumoniae Ag Negative PFSH All Active Problems (Updated 01/19/22 @ 13:21 by Liza Fontenot MD) Folate deficiency (Acute) Metastatic lung cancer (metastasis from lung to other site) (Chronic) Goals of care, counseling/discussion (Acute) Discharge planning issues (Acute) Newly diagnosed diabetes (Acute) Pneumonia (Acute) Acute purulent bronchitis (Acute) History of chemotherapy (Acute) History of lung cancer (Acute) Medical History Brain metastases Deep vein thrombosis (DVT) of right upper extremity Near occlusive thrombus R internal jugular vein on 07/09/21 Stage IV adenocarcinoma of lung Surgical History History of hernia repair Family History Sister Cancer childhood head and neck cancer; ?osteosarcoma; underwent jaw resection Father Diabetes Social History Smoking/Tobacco Use Status: Former Tobacco Use Smoking risk assessment performed?: Yes Alcohol Intake: current Alcohol Intake frequency: a few times a month Substance use type: does not use Do you feel safe at home: Yes Do you feel safe in your relationship?: Yes
--- NOTE | 2022-01-19 13:25 | PDOC.CMDIS ---
- If Service Date Differs Date of service: 01/19/22 Time of Service: 13:25 LACE Index Scoring Tool - Questions: Length of Stay (in days): 4 - 6 Acuity (Admit via E.D.?): Yes Comorbidities: Any Tumor E.D. Visits: 1 - Answers: Total Score: 10 Risk of Readmission: High Risk Care Management Discharge Reason for Hospitalization: DKA (diabetic ketoacidosis), LAUREN (acute kidney injury), R/O pneumonia. Discharge Plan: Yehuda is discharged home with no new services. He will follow up with his PCP, surgeon and plan of care as prescribed. He is transported home via private vehicle by his . Patient/Family Education Needs: Review of discharge instructions and discuss Ask Me Three.
[2022-01-19] MEDS: Heparin 500 UNITS/5 ML SYRINGE IVP (15:06)
[2022-01-21 16:03] LABS: Mycoplasma Pneumoniae PCR Negative; Specimen source Sputum
[2022-01-31 08:18] LABS: pCO2 15 mmHg (35-45)
== END 2022-01-19 15:31 | disposition home or self-care (01) | DRG 637 ==
LOC: ER 18:47 → ICU 19:39 → MS 01-17 17:38
PROVIDERS: Internal Medicine; Admitting Provider Internal Medicine; Emergency Provider Physician Assistant; PCP Family Medicine; Visit Provider Internal Medicine
DX: E11.10 Type 2 diabetes mellitus with ketoacidosis without coma (principal); J18.9 Pneumonia, unspecified organism; N17.9 Acute kidney failure, unspecified; C34.32 Malignant neoplasm of lower lobe, left bronchus or lung; C79.31 Secondary malignant neoplasm of brain; C79.89 Secondary malignant neoplasm of other specified sites; K86.1 Other chronic pancreatitis; Z86.718 Personal history of other venous thrombosis and embolism; J20.9 Acute bronchitis, unspecified; E11.43 Type 2 diabetes mellitus with diabetic autonomic (poly)neuropathy; K31.84 Gastroparesis; Z79.01 Long term (current) use of anticoagulants; E53.8 Deficiency of other specified B group vitamins
CPT/HCPCS: 36415; 36416; 71250; 80048; 80053; 80061; 82533; 82805; 82962; 83690; 85027; 87081; 87449; 87635; 93005; 94640; 96361; 96365; 96366; 96367; 96375; 96376; 99291; 36600; 71045; 74176; 81003; 81015; 82150; 82607; 82728; 82746; 83036; 83540; 83550; 83735; 84100; 84484; 85014; 85018; 85025; 87070; 87205; 87581; 87899; 93010; 94667; 94760; 99233; 99239; J0456; J0696; J2060; J2270; J2405; J2930; J3480; J3490; J7512; J7620